=== PATIENT | female | born 1990 | race Caucasian/White ===

== ENCOUNTER 2016-12-02 19:50 | Emergency (ER) | payer SELFPAY ==
[~2016-12-02] VITALS: Wt 85.0 kg
[~2016-12-02 19:50] MED LIST: NITR-58 PO
== END 2016-12-02 23:03 | disposition left against medical advice (07) ==
LOC: FTE 19:50
DX: Z53.21 Procedure and treatment not carried out due to patient leaving prior to being seen by health care provider (principal)

== ENCOUNTER 2017-09-10 11:10 | Emergency (ER) | payer OTHER ==
[~2017-09-10] VITALS: Ht 167.6 cm; Wt 117.0 kg
[2017-09-10 11:27] VITALS: Ht 167.6 cm; Wt 117.0 kg
[2017-09-10] MEDS ORDERED: HYDROmorphONE 1 MG/ML SYG IV STA (12:27)
[2017-09-10] MEDS ORDERED: ONDANSETRON 4 MG INJ IV STA (12:27)
[2017-09-10] MEDS ORDERED: SOD CHLORIDE 0.9% 1,000 ML IV STA (12:27)
[2017-09-10 13:24] LABS: BASOPHILS % 0.3 % (0.0-2.0); EOSINOPHILS % 0.6 % (0.0-7.0); HEMATOCRIT 38.1 % (37.0-47.0); HEMOGLOBIN 12.6 g/dl (12.0-16.0); LYMPHOCYTES # 1.3 10^3/ul (0.8-2.9); LYMPHOCYTES % 20.6 % (15.0-51.0); MEAN CORPUSCULAR HEMOGLOBIN 28.4 pg (29.0-33.0); MEAN CORPUSCULAR HGB CONC 33.1 g/dl (32.0-37.0); MEAN CORPUSCULAR VOLUME 85.8 fl (82.0-101.0); MEAN PLATELET VOLUME 10.9 fl (7.4-10.4); MONOCYTE # 0.5 10^3/ul (0.3-0.9); MONOCYTES % 7.5 % (0.0-11.0); NEUTROPHIL # 4.5 10^3/ul (1.6-7.5); NEUTROPHILS % 70.7 % (39.0-77.0); PLATELET COUNT 278 10^3/UL (140-415); RED BLOOD COUNT 4.44 10^6/ul (4.20-5.40); RED CELL DISTRIBUTION WIDTH 12.9 % (11.5-14.5); WHITE BLOOD COUNT 6.3 10^3/ul (4.8-10.8)
[2017-09-10 14:08] LABS: ALBUMIN 4.1 g/dl (3.3-4.9); ALBUMIN/GLOBULIN RATIO 1.17; BILIRUBIN,INDIRECT 0.2 mg/dl (0-1.1); BILIRUBIN,TOTAL 0.2 mg/dl (0.2-1.3); CALCIUM 8.5 mg/dl (8.4-10.2); CREATININE 0.71 mg/dl (0.44-1.00); POTASSIUM 3.6 mmol/L (3.5-5.1); TOTAL PROTEIN 7.6 g/dl (6.1-8.1)
[2017-09-10] MEDS ORDERED: IOHEXOL 300MG/ML 150 ML BTL ONE (14:26)
[2017-09-10] MEDS ORDERED: SOD CHLORIDE 0.9% 100 ML ONE (14:26)
--- NOTE | 2017-09-10 14:44 | ERD ---
ER Documentation Chief Complaint Chief Complaint AP X3 DAYS W/VOMITTING HPI This is a 26-year-old female complains of 3 days of abdominal pain located in the left upper and lower quadrant with nausea vomiting diarrhea. There has been no blood in her vomit or diarrhea there is nonbilious vomiting. The pain is crampy and intermittent. No pain in the back. No fever. No history of diverticulitis no known bad food exposure. Pain is not made worse after eating. ROS All systems reviewed and are negative except as per history of present illness. Medications Home Meds Active Scripts Diphenoxylate HCl/Atropine (Lomotil 2.5-0.025 mg Tablet) 1 Each Tablet, 1 TAB PO QID Y for DIARRHEA, #10 TAB Prov:ERASMO PARTIDA DO 09/10/17 Ondansetron (Ondansetron Odt) 4 Mg Tab.rapdis, 4 MG PO Q6H Y for NAUSEA AND/OR VOMITING, #10 TAB Prov:ERASMO PARTIDA DO 09/10/17 Hydrocodone/Acetaminophen (Calpine 10-325 Tablet) 1 Each Tablet, 1 TAB PO Q6H Y for PAIN, #20 TAB Prov:ERASMO PARTIDA. DO 09/10/17 Ciprofloxacin Hcl* (Ciprofloxacin Hcl*) 500 Mg Tablet, 500 MG PO BID for 7 Days , TAB Prov:ERASMO PARTIDA. DO 09/10/17 Nitrofurantoin Monohyd Macrocr* (Macrobid*) 100 Mg Capsr, 100 MG PO BID for 7 Days, CAP Prov:UMER FORD NP 03/15/16 Allergies Allergies: Coded Allergies: No Known Allergies (Verified Allergy, Mild, 03/19/14) PMhx/Soc Anesthesia Reaction: No Hx Neurological Disorder: No Hx Respiratory Disorders: No Hx Cardiac Disorders: No Hx Psychiatric Problems: No Hx Miscellaneous Medical Probl: No Hx Alcohol Use: No Hx Substance Use: No Hx Tobacco Use: No Smoking Status: Never smoker FmHx Family History: No coronary disease Physical Exam Vitals Vital Signs Date Time Temp Pulse Resp B/P Pulse Ox O2 Delivery O2 Flow Rate FiO2 09/10/17 11:27 100.4 90 18 138/64 98 Physical Exam Const: Well-developed, well-nourished Head: Atraumatic, normocephalic Eyes: Normal Conjunctiva, PERRLA, EOMI, normal sclera, no nystagmus ENT: Normal External Ears, Nose and Mouth, moist mucus membranes. Neck: Full range of motion. No meningismus, no lymphadenopathy. Resp: Clear to auscultation bilaterally, no wheezing, rhonchi, rales Cardio: Regular rate and rhythm, no murmurs, S1 S2 present Abd: Soft, tenderness to the left upper and lower quadrant mild to moderate, non distended. Normal bowel sounds, no guarding or rebound, no pulsitile abdominal masses or bruits Skin: No petechiae or rashes, no ecchymosis , no maculopapular rash Back: No midline or flank tenderness Ext: No cyanosis, or edema, FROM x 4, normal inspection, neurovascularly intact x 4 Neur: Awake and alert, STR 5/5 x 4, sensation intact x 4, no focal findings, cerebellum intact Psych: Normal Mood and Affect Result Diagram: 09/10/17 1255 09/10/17 1255 Results 24 hrs Laboratory Tests Test 09/10/17 12:55 White Blood Count 6.310^3/ul Red Blood Count 4.4410^6/ul Hemoglobin 12.6g/dl Hematocrit 38.1% Mean Corpuscular Volume 85.8fl Mean Corpuscular Hemoglobin 28.4pg Mean Corpuscular Hemoglobin Concent 33.1g/dl Red Cell Distribution Width 12.9% Platelet Count 07104^3/UL Mean Platelet Volume 10.9fl Neutrophils % 70.7% Lymphocytes % 20.6% Monocytes % 7.5% Eosinophils % 0.6% Basophils % 0.3% Nucleated Red Blood Cells % 0.0/100WBC Neutrophils # 4.510^3/ul Lymphocytes # 1.310^3/ul Monocytes # 0.510^3/ul Eosinophils # 0.010^3/ul Basophils # 0.010^3/ul Nucleated Red Blood Cells # 0.010^3/ul Sodium Level 140mmol/L Potassium Level 3.6mmol/L Chloride Level 105mmol/L Carbon Dioxide Level 23mmol/L Anion Gap 16 Blood Urea Nitrogen 9mg/dl Creatinine 0.71mg/dl Glucose Level 91mg/dl Calcium Level 8.5mg/dl Total Bilirubin 0.2mg/dl Direct Bilirubin 0.00mg/dl Indirect Bilirubin 0.2mg/dl Aspartate Amino Transf (AST/SGOT) 21IU/L Alanine Aminotransferase (ALT/SGPT) 41IU/L Alkaline Phosphatase 72IU/L Total Protein 7.6g/dl Albumin 4.1g/dl Globulin 3.50g/dl Albumin/Globulin Ratio 1.17 Serum HCG, Qualitative NEGATIVE Current Medications Medications (Trade) Dose Ordered Sig/Jerardo Route PRN Reason Start Time Stop Time Status Last Admin Dose Admin Sodium Chloride (NS) 1,000 ml @ 1,000 mls/hr Q1H STAT IV 09/10/17 12:27 09/10/17 13:26 DC 09/10/17 13:15 Hydromorphone HCl (Dilaudid) 1 mg ONCE STAT IV 09/10/17 12:27 09/10/17 12:29 DC 09/10/17 13:40 Ondansetron HCl (Zofran Inj) 4 mg ONCE STAT IV 09/10/17 12:27 09/10/17 12:29 DC 09/10/17 13:39 IV Flush 10 ml 10 ml STK-MED ONCE .ROUTE 09/10/17 14:26 09/10/17 14:27 DC 09/10/17 14:45 Sodium Chloride (NS) 100 ml @ ud STK-MED ONCE .ROUTE 09/10/17 14:26 09/10/17 14:27 DC 09/10/17 14:45 Iohexol (Omnipaque 300mg/ ml) 150 ml STK-MED ONCE .ROUTE 09/10/17 14:26 09/10/17 14:27 DC 09/10/17 14:45 Procedures/MDM PROCEDURE: CT Abdomen and Pelvis with Contrast CLINICAL INDICATION: Left lower quadrant pain TECHNIQUE: Transaxial images were obtained through the abdomen and pelvis on a multi-slice scanner following the intravenous administration of iodinated contrast. No oral contrast had previously been given. Sagittal and coronal re- formations were subsequently reconstructed. One or more of the following dose reduction techniques were used: - Automated exposure control. - Adjustment of the mA and/or kV according to patient size. - Use of iterative reconstruction technique. Radiation dose: CTDIvol = 23.71 mGy; DLP = 1563.59 mGy-cm. COMPARISON: 12/15/2007 FINDINGS: Lung bases: The visualized lung bases appear unremarkable. Liver: The liver is enlarged but no focal lesion is identified. Gallbladder: The wall is not thickened. No radiopaque stones are identified. Bile ducts: The intra and extrahepatic bile ducts are normal in caliber. Pancreas: Appears normal with no mass or inflammation evident. Spleen: The spleen is mildly enlarged. Adrenals: Normal with no mass identified. Kidneys, ureters and bladder: The kidneys enhance normally and are normal in size and there is no mass, pathological calcification, or hydronephrosis evident. There is no perinephric stranding. The ureters are normal in caliber and no ureteroliths are identified. The bladder appears unremarkable. Reproductive organs: The uterus is midline. No adnexal mass is identified. Stomach, bowel, and mesentery: The stomach is mildly distended with food debris. There is fluid through much of the colon which can be seen with diarrhea. There is no evidence of bowel obstruction or inflammation. Appendix: Portions of a normal-appearing vermiform appendix are evident. Peritoneum: No free intraperitoneal fluid or air is identified. Aorta: Normal in caliber with no aneurysmal dilatation. IVC: Unremarkable. Lymph nodes: No pathologically enlarged nodes are identified. Osseous structures: The osseous elements appear intact. IMPRESSION: 1. When compared to the previous CT of 12/15/2007, fluid is now seen through much of the colon. This can be seen in a diarrhea syndrome. There is again no evidence of bowel obstruction or inflammation. Portions of a normal vermiform appendix are evident. 2. No evidence of urinary outflow obstruction or ureterolithiasis within normal appearing bladder. 3. Development of mild hepatomegaly with no focal lesion. 4. Development of mild splenomegaly. 5. There is no free intraperitoneal fluid or air. 6. Otherwise, stable and unremarkable CT scan of the abdomen and pelvis. Physician Tess Date Time Electronically viewed and signed by Physician Tess on 09/10/2017 14:58 RH/ CC: ERASMO PARTIDA DO No evidence of diverticulitis or other pathology. The patient likely has gastroenteritis, bad food exposure or virus. She feels much better will treat symptomatically Departure Diagnosis: Primary Impression: Vomiting and diarrhea Additional Impression: Abdominal cramps Condition: Stable ERASMO PARTIDA DO Sep 10, 2017 14:44
[2017-09-10] MEDS ORDERED: DIPH1TAB PO (14:55)
[2017-09-10] MEDS ORDERED: ONDA4TAB14 PO (14:55)
[2017-09-10] MEDS ORDERED: HYDR-902 PO (14:55)
[2017-09-10] MEDS ORDERED: CIPR500T4 PO (14:55)
--- NOTE | 2017-09-10 14:59 | RADRPT ---
PROCEDURE: CT Abdomen and Pelvis with Contrast CLINICAL INDICATION: Left lower quadrant pain TECHNIQUE: Transaxial images were obtained through the abdomen and pelvis on a multi-slice scanner following the intravenous administration of iodinated contrast. No oral contrast had previously be en given. Sagittal and coronal re-formations were subsequently reconstructed. One or more of the following dose reduction techniques were used: - Automated exposure control. - Adjustment of the mA and/or kV according to patient size. - Use of iterative reconstruction technique. Radiation dose: CTDIvol = 23.71 mGy; DLP = 1563.59 mGy-cm. COMPARISON: 12/15/2007 FINDINGS: Lung bases: The visualized lung bases appear unremarkable. Liver: The liver is enlarged but no focal lesion is identified. Gallbladder: The wall is not thickened. No radiopaque stones are identified. Bile ducts: The intra and extrahepatic bile ducts are normal in caliber. Pancreas: Appears normal with no mass or inflammation evident. Spleen: The spleen is mildly enlarged. Adrenals: Normal with no mass identified. Kidneys, ureters and bladder: The kidneys enhance normally and are normal in size and there is no ma ss, pathological calcification, or hydronephrosis evident. There is no perinephric stranding. The ur eters are normal in caliber and no ureteroliths are identified. The bladder appears unremarkable. Reproductive organs: The uterus is midline. No adnexal mass is identified. Stomach, bowel, and mesentery: The stomach is mildly distended with food debris. There is fluid thro ugh much of the colon which can be seen with diarrhea. There is no evidence of bowel obstruction or inflammation. Appendix: Portions of a normal-appearing vermiform appendix are evident. Peritoneum: No free intraperitoneal fluid or air is identified. Aorta: Normal in caliber with no aneurysmal dilatation. IVC: Unremarkable. Lymph nodes: No pathologically enlarged nodes are identified. Osseous structures: The osseous elements appear intact. IMPRESSION: 1. When compared to the previous CT of 12/15/2007, fluid is now seen through much of the colon. Thi s can be seen in a diarrhea syndrome. There is again no evidence of bowel obstruction or inflammatio n. Portions of a normal vermiform appendix are evident. 2. No evidence of urinary outflow obstruction or ureterolithiasis within normal appearing bladder. 3. Development of mild hepatomegaly with no focal lesion. 4. Development of mild splenomegaly. 5. There is no free intraperitoneal fluid or air. 6. Otherwise, stable and unremarkable CT scan of the abdomen and pelvis. Physician Tess Date Time Electronically viewed and signed by Majo Vasquez Physician on 09/10/2017 14:58 RH/
[2017-09-10 15:25] VITALS: BP 127/59; PULSE 84; RESP 18; TEMP 98.7
== END 2017-09-10 15:26 | disposition home or self-care (01) ==
LOC: FTE 11:10
DX: R10.12 Left upper quadrant pain (principal); R10.32 Left lower quadrant pain; R11.10 Vomiting, unspecified; R19.7 Diarrhea, unspecified
CPT/HCPCS: 36415; 74177; 80053; 84703; 85025; 96374; 96375; J1170; J2405; J7030; Q9967; Z7502; Z7610

== ENCOUNTER 2018-01-07 15:17 | Emergency (ER) | END 2018-01-07 21:37 | disposition home or self-care (01) ==

== ENCOUNTER 2018-06-06 12:21 | Emergency (ER) | END 2018-06-06 15:43 | disposition home or self-care (01) ==

== ENCOUNTER 2018-12-16 18:48 | Emergency (ER) | payer OTHER ==
[~2018-12-16] VITALS: Ht 162.6 cm; Wt 117.4 kg
[~2018-12-16 18:48] MED LIST changes: +AZIT250T PO; +CIPR500T4 PO; +DIPH1TAB PO; +HYDR-3980 PO; +HYDR-4011 PO; +IBUP-1561 PO; +ONDA4TAB14 PO
[2018-12-16 18:59] VITALS: Ht 162.6 cm; Wt 117.4 kg
[2018-12-16] MEDS ORDERED: SOD CHLORIDE 0.9% 1,000 ML IV STA (21:40)
[2018-12-16] MEDS ORDERED: DICYCLOMINE 10 MG CAP PO ONE (22:00)
[2018-12-16] MEDS ORDERED: DICY10CA40 PO (22:56)
--- NOTE | 2018-12-16 23:06 | ERD ---
ER Documentation Chief Complaint Chief Complaint AP and diarrhea x 3 weeks HPI Patient is a 28-year-old female with no past medical history presents the ER for concerns of diffuse abdominal pain and diarrhea for the last 3 months. Patient states her episodes of diarrhea are increasing over the last 3 weeks. Patient states that she is noted that she is now having some blood in her stools. Patient approximates 2-3 episodes of loose stools daily. Patient states that her stools alternate between being loose and formed. Patient denies any dizziness or lightheadedness. Patient denies any fevers or chills. Patient states she occasionally has abdominal cramping. No recent travel. No recent antibiotic use. Patient denies any chest pain, shortness of breath, nausea, vomiting, dysuria, frequency, hematuria, diaphoresis or loss of consciousness. ROS All systems reviewed and are negative except as per history of present illness. Medications Home Meds Active Scripts Dicyclomine HCl (Dicyclomine HCl) 10 Mg Capsule, 10 MG PO TID PRN for ABDOMINAL CRAMPING, #20 CAP Prov:LUNA MOSELEY PA-C 12/16/18 Nitrofurantoin Monohyd Macrocr* (Macrobid*) 100 Mg Capsr, 100 MG PO BID for 5 Days, #10 CAP Prov:JOSE EDUARDO WAKEFIELD DO 06/06/18 Azithromycin* (Zithromax*) 250 Mg Tablet, 250 MG PO .RUTH DIRECTED, #6 TAB TAKE 500 MG (2 TABS) THE FIRST DAY THEN 250 MG (1 TAB) DAYS 2-5 Prov:TIMO HUTCHINSON MD 01/07/18 Ibuprofen* (Motrin*) 400 Mg Tab, 400 MG PO Q8, #15 TAB Prov:TIMO HUTCHINSON MD 01/07/18 Hydrocodone/Acetaminophen ([place] 5-325 Tablet) 1 Each Tablet, 1 TAB PO Q6H PRN for PAIN, #12 TAB Prov:TIMO HUTCHINSON MD 01/07/18 Diphenoxylate HCl/Atropine (Lomotil 2.5-0.025 mg Tablet) 1 Each Tablet, 1 TAB PO QID PRN for DIARRHEA, #10 TAB Prov:ERASMO PARTIDA DO 09/10/17 Ondansetron (Ondansetron Odt) 4 Mg Tab.rapdis, 4 MG PO Q6H PRN for NAUSEA AND/OR VOMITING, #10 TAB Prov:ERASMO PARTIDA DO 09/10/17 Hydrocodone/Acetaminophen ([place] 10-325 Tablet) 1 Each Tablet, 1 TAB PO Q6H PRN for PAIN, #20 TAB Prov:ERASMO PARTIDA. DO 09/10/17 Ciprofloxacin Hcl* (Ciprofloxacin Hcl*) 500 Mg Tablet, 500 MG PO BID for 7 Days, TAB Prov:ERASMO PARTIDA. DO 09/10/17 Nitrofurantoin Monohyd Macrocr* (Macrobid*) 100 Mg Capsr, 100 MG PO BID for 7 Days, CAP Prov:UMER FORD NP 03/15/16 Allergies Allergies: Coded Allergies: No Known Allergies (Verified Allergy, Mild, 01/07/18) PMhx/Soc Medical and Surgical Hx: pt denies Medical Hx Anesthesia Reaction: No Hx Neurological Disorder: No Hx Respiratory Disorders: No Hx Cardiac Disorders: No Hx Psychiatric Problems: No Hx Miscellaneous Medical Probl: No Hx Alcohol Use: Yes (OCCASIONAL) Hx Substance Use: Yes (MARIJUANA) Hx Tobacco Use: No Smoking Status: Never smoker FmHx Family History: No diabetes Physical Exam Vitals Vital Signs Date Temp Pulse Resp B/P (MAP) Pulse Ox O2 O2 Flow FiO2 Time Delivery Rate 12/16/18 98.7 83 20 135/82 97 18:59 (99) Physical Exam GENERAL: Well-developed, well-nourished female. Appears in no acute distress. Speaking in full sentences. HEAD: Normocephalic, atraumatic. EYES: Pupils are equally reactive bilaterally. EOMs grossly intact. No conjunctival erythema. ENT: Moist mucous membranes. No uvula deviation. No kissing tonsils. NECK: Supple. No meningismus. Normal range of motion of the neck. LUNG: Clear to auscultation bilaterally. No rhonchi, wheezing, rales or coarse breath sounds. HEART: Regular rate and rhythm. No murmurs, rubs or gallops. ABDOMEN: Obese abdomen. Soft, nontender, and nondistended. Positive bowel sounds in all four quadrants. No rebound tenderness, no guarding. (-) McBurney's point tenderness. No CVA tenderness. EXTREMITIES: Equal pulses bilaterally. No peripheral clubbing, cyanosis or edema. No unilateral leg swelling. NEUROLOGIC: Alert and oriented. Moving all four extremities without any difficulty. Normal speech. Steady gait. SKIN: Normal color. Warm and dry. No rashes or lesions. Result Diagram: 12/16/18220012/16/182200 Results 24 hrs Laboratory Tests Test 12/16/18 21:54 12/16/18 22:01 POC Beta HCG, Qualitative NEGATIVE White Blood Count 9.9 10^3/ul Red Blood Count 4.42 10^6/ul Hemoglobin 12.6 g/dl Hematocrit 38.0 % Mean Corpuscular Volume 86.0 fl Mean Corpuscular Hemoglobin 28.5 pg Mean Corpuscular Hemoglobin Concent 33.2 g/dl Red Cell Distribution Width 13.2 % Platelet Count 312 10^3/UL Mean Platelet Volume 10.8 fl Immature Granulocytes % 0.300 % Neutrophils % 63.1 % Lymphocytes % 27.7 % Monocytes % 6.7 % Eosinophils % 1.9 % Basophils % 0.3 % Nucleated Red Blood Cells % 0.0 /100WBC Immature Granulocytes # 0.030 10^3/ul Neutrophils # 6.2 10^3/ul Lymphocytes # 2.7 10^3/ul Monocytes # 0.7 10^3/ul Eosinophils # 0.2 10^3/ul Basophils # 0.0 10^3/ul Nucleated Red Blood Cells # 0.0 10^3/ul Urine Color YELLOW Urine Clarity SLIGHTLY CLOUDY Urine pH 6.0 Urine Specific [place] 1.032 Urine Ketones TRACE mg/dL Urine Nitrite NEGATIVE mg/dL Urine Bilirubin NEGATIVE mg/dL Urine Urobilinogen NEGATIVE mg/dL Urine Leukocyte Esterase TRACE Deneen/ul Urine Microscopic RBC 11 /HPF Urine Microscopic WBC 6 /HPF Urine Squamous Epithelial Cells FEW /HPF Urine Bacteria FEW /HPF Urine Mucus MODERATE /HPF Urine Hemoglobin 1+ mg/dL Urine Glucose NEGATIVE mg/dL Urine Total Protein NEGATIVE mg/dl Sodium Level 139 mmol/L Potassium Level 4.5 mmol/L Chloride Level 101 mmol/L Carbon Dioxide Level 25 mmol/L Anion Gap 13 Blood Urea Nitrogen 13 mg/dl Creatinine 0.56 mg/dl Est Glomerular Filtrat Rate mL/min > 60 mL/min Glucose Level 95 mg/dl Calcium Level 9.5 mg/dl Total Bilirubin 0.0 mg/dl Direct Bilirubin 0.00 mg/dl Indirect Bilirubin 0.0 mg/dl Aspartate Amino Transf (AST/SGOT) 31 IU/L Alanine Aminotransferase (ALT/SGPT) 33 IU/L Alkaline Phosphatase 95 IU/L Total Protein 8.5 g/dl Albumin 4.6 g/dl Globulin 3.90 g/dl Albumin/Globulin Ratio 1.17 Lipase 37 U/L Current Medications Medications Dose Sig/Jerardo Start Time Status Last (Trade) Ordered Route PRN Stop Time Admin Dose Reason Admin Sodium 1,000 ml @ Q1H STAT 12/16/18 DC 12/16/18 Chloride 1,000 mls/hr IV 21:40 21:55 12/16/18 22:39 Dicyclomine 10 mg ONCE ONCE 12/16/18 DC 12/16/18 HCl PO 22:00 21:56 (Bentyl) 12/16/18 22:01 Procedures/MDM ED COURSE: The patient was stable throughout ED course. I kept the patient and/or family informed of laboratory and diagnostic imaging results throughout the ED course. DIAGNOSTIC IMAGING: Read by radiologist. DIAGNOSTIC IMAGING REPORT Patient: ISABELLA SCHAEFER : 1990 Age: 28 Sex: F MR #: [id number] DOS: 12/16/18 2140 Ordering MD: LUNA MOSELEY PA-C Location: [facility] Room/Bed: PROCEDURE: CT ABDOMEN AND PELVIS WITHOUT CONTRAST. CLINICAL INDICATION: Abdominal pain with bloody stools TECHNIQUE: CT scan of the abdomen and pelvis without contrast was performed on a multidetector high-resolution CT scanner. The patient was scanned without intravenous contrast. Coronal and sagittal reformatted images were obtained from the axial source images. Images were reviewed on a high-resolution PACS workstation. The total exam CTDI equals 23.8 mGy and the total exam DLP equals 1523.7 mGy-cm. One or more of the following dose reduction techniques were used: Automated exposure control. Adjustment of the mA and/or kV according to patient size. Use of iterative reconstruction technique. DICOM images are available COMPARISON: CT abdomen/pelvis dated September 10, 2017 FINDINGS: CT abdomen: The lung bases are clear. The heart size is within normal limits. There is no significant pericardial effusion. Hepatic morphology is within normal limits. No gross contour deforming masses. The gallbladder is within normal limits. No evidence of intrahepatic or extrahepatic biliary dilatation. The spleen and pancreas are within normal limits. Both adrenal glands are within normal limits. Both kidneys are in normal anatomic position. No evidence of obstruction or hydronephrosis. No gross renal/ureteric calculi. The visualized GI tract demonstrate normal caliber loops of small and large bowel. No evidence of bowel obstruction. The appendix is within normal limits. The unenhanced aorta is unremarkable. Several shoddy retroperitoneal lymph nodes are noted. CT pelvis: The bladder is within limits. Uterus is unremarkable. The rectosigmoid colon demonstrates stool. No gross perirectal inflammatory changes . No significant free fluid. No significant pelvic lymphadenopathy. The visualized osseous structures, appears to be within normal limits. IMPRESSION: 1. No evidence of acute intra-abdominal/pelvic inflammatory process. No evidence of bowel obstruction. The appendix is within normal limits. 2. The rectosigmoid colon appears to be within normal limits without evidence of perirectal fatty stranding. 3. No evidence of free fluid or free air. No gross focal fluid collections. 4. Otherwise unremarkable unenhanced CT scan of the abdomen/pelvis. RPTAT: AAPP Physician Padmaja Date Time Electronically viewed and signed by Physician Padmaja on 12/16/2018 22:43 JL/ CC: LUNA MOSELEY PA-C [id number] PROCEDURES: None. MEDICATIONS GIVEN: IV fluids, Bentyl Patient tolerated medication well with no adverse reactions. Patient reported improvement in pain. MEDICAL DECISION MAKING: This is a 28-year-old female presents the ER for concerns of intermittent abdominal pain and diarrhea for the last 3 months. Patient states her frequency and diarrhea is starting to occur more.. Vital signs were reviewed. Patient is afebrile. Abdominal exam is benign. Patient had no peritoneal signs. Patient had no rebound or guarding. IV line was established. Blood work was obtained. CBC showed no evidence of systemic infection or severe anemia. CMP showed no evidence of electrolyte abnormalities, severe acidosis, alkalosis, renal failure, or liver disease. Lipase showed no evidence of acute pancreatitis. UA showed trace leukocyte esterase and diffuse, squamous epithelial cells. Urine likely contaminated specimen. Patient denies any dysuria, frequency, hematuria. I will hold off on treating patient at this time. Urine test was negative. CT abdomen pelvis was obtained. 1. No evidence of acute intra-abdominal/pelvic inflammatory process. No evidence of bowel obstruction. The appendix is within normal limits. 2. The rectosigmoid colon appears to be within normal limits without evidence of perirectal fatty stranding. 3. No evidence of free fluid or free air. No gross focal fluid collections. 4. Otherwise unremarkable unenhanced CT scan of the abdomen/pelvis. At this time, the patient presentation is most consistent with diarrhea of unknown etiology. Unable to rule out IBD versus malignancy versus bacterial sources. Patient was advised to follow-up with her primary care physician for stool studies on outpatient basis. Differential diagnosis included but was not limited to acute coronary syndrome, AAA, mesenteric ischemia, lower lobe pneumonia, DKA, bowel perforation, obstruction, cholecystitis, choledochol ithiasis, ascending cholangitis, hepatic abscess, pancreatitis, PUD, gastritis, GERD, splenic rupture, diverticulitis, UTI, pyelonephritis, nephrolithiasis, appendicitis, constipation, , ectopic , PID, ovarian torsion or tubo-ovarian abscess. Patient was nontoxic, [id number] prior to discharge. PRESCRIPTIONS: Bentyl DISCHARGE: At this time, patient is stable for discharge and outpatient management. I have instructed the patient to follow-up with his/her primary care physician in 1-2 days. I have instructed the patient to promptly return to the ER at any time for any new or worsening symptoms including increased pain, nausea, vomiting, diarrhea, fever, weakness or LOC. The patient and/or family expressed understanding of and agreement with this plan. All questions were answered. Home care instructions were provided. Disclaimer: Inadvertent spelling and grammatical errors are likely due to EHR/dictation software use and do not reflect on the overall quality of patient care. Also, please note that the electronic time recorded on this note does not necessarily reflect the actual time of the patient encounter. Departure Diagnosis: Primary Impression: Diarrhea Diarrhea type: unspecified type Qualified Codes: R19.7 - Diarrhea, unspecified Additional Impression: Abdominal pain Abdominal location: unspecified location Qualified Codes: R10.9 - Unspecified abdominal pain Condition: Fair Patient Instructions: Treating Diarrhea Referrals: BARNEY RICHARD NAGARAJ M MD DANESHGAR, SHAHRAM MD JOGANI,CARLOS GUADALUPE,CATIA ARCHER,CATRACHITO ALMONTE MD,ANN SOLOMON [facility] YOU HAVE RECEIVED A MEDICAL SCREENING EXAM AND THE RESULTS INDICATE THAT YOU DO NOT HAVE A CONDITION THAT REQUIRES URGENT TREATMENT IN THE EMERGENCY DEPARTMENT. FURTHER EVALUATION AND TREATMENT OF YOUR CONDITION CAN WAIT UNTIL YOU ARE SEEN IN YOUR DOCTORS OFFICE WITHIN THE NEXT 1-2 DAYS. IT IS YOUR RESPONSIBILITY TO MAKE AN APPOINTMENT FOR FOLOW-UP CARE. IF YOU HAVE A PRIMARY DOCTOR --you should call your primary doctor and schedule an appointment IF YOU DO NOT HAVE A PRIMARY DOCTOR YOU CAN CALL OUR PHYSICIAN REFERRAL HOTLINE AT IF YOU CAN NOT AFFORD TO SEE A PHYSICIAN YOU CAN CHOSE FROM THE FOLLOWING [facility] [address] [facility]. [facility] [address] [facility] [address] [facility] [address] [facility] [address] [facility]. [facility] [address] [facility] [facility] YOU HAVE RECEIVED A MEDICAL SCREENING EXAM AND THE RESULTS INDICATE THAT YOU DO NOT HAVE A CONDITION THAT REQUIRES URGENT TREATMENT IN THE EMERGENCY DEPARTMENT. FURTHER EVALUATION AND TREATMENT OF YOUR CONDITION CAN WAIT UNTIL YOU ARE SEEN IN YOUR DOCTORS OFFICE WITHIN THE NEXT 1-2 DAYS. IT IS YOUR RESPONSIBILITY TO MAKE AN APPOINTMENT FOR FOLOW-UP CARE. IF YOU HAVE A PRIMARY DOCTOR --you should call your primary doctor and schedule and appointment IF YOU DO NOT HAVE A PRIMARY DOCTOR YOU CAN CALL OUR PHYSICIAN REFERRAL HOTLINE AT . IF YOU CAN NOT AFFORD TO SEE A PHYSICIAN YOU CAN CHOSE FROM THE FOLLOWING [facility] INSTITUTIONS: [facility] [address] [place] [address] [facility] [address] [place] [address] [facility] + [facility] [address] [place] [address] Additional Instructions: Follow-up with your primary care physician for stool studies on outpatient basis. Drink plenty of fluids. Stay hydrated. Follow-up with a GI specialist for further management of your symptoms. Call your primary care doctor TOMORROW for an appointment during the next 1-2 days.See the doctor sooner or return here if your condition worsens before your appointment time. LUNA MOSELEY PA-C Dec 16, 2018 23:06
[2018-12-16 23:37] VITALS: BP 125/61; PULSE 80; RESP 18
== END 2018-12-16 23:46 | disposition home or self-care (01) ==
LOC: FTE 18:48
DX: R19.7 Diarrhea, unspecified (principal); R10.9 Unspecified abdominal pain
CPT/HCPCS: 36415; 74176; 80053; 81001; 81025; 83690; 85025; J7030; Z7502; Z7610

== ENCOUNTER 2019-01-28 11:01 | Emergency (ER) | payer OTHER ==
[~2019-01-28] VITALS: Ht 167.6 cm; Wt 120.0 kg
[~2019-01-28 11:01] MED LIST changes: +DICY10CA40 PO
[2019-01-28 11:08] VITALS: Ht 167.6 cm; Wt 120.0 kg
[2019-01-28] MEDS ORDERED: ACETAMINOPHEN 325 MG TAB PO STA (11:49)
[2019-01-28] MEDS ORDERED: ACET500C5 PO (14:03)
[2019-01-28] MEDS ORDERED: CEPH-443 PO (14:03)
--- NOTE | 2019-01-28 14:36 | ERD ---
ER Documentation Chief Complaint Chief Complaint LOWER ABD PAIN X 3 DAYS , DENIES N//V/D HPI 28-year-old female patient is a with no significant past medical history presents to ED complaining of lower abdominal pain that started 3 days ago. Patient denies any nausea, vomiting, diarrhea. Reports that her last menstruation was on December 21, 2018. Denies any chest pain, shortness of breath, dysuria, urgency, frequency, hematuria, fever, chills. Patient denies any vaginal bleeding, vaginal discharge. ROS All systems reviewed and are negative except as per history of present illness. Medications Home Meds Active Scripts Cephalexin* (Keflex*) 500 Mg Capsule, 500 MG PO QID for 7 Days, CAP Prov:ZAK LOUIS PA-C 01/28/19 Acetaminophen* (Tylophen*) 500 Mg Capsule, 1 CAP PO Q6H PRN for PAIN AND OR ELEVATED TEMP, #20 CAP Prov:ZAK LOUIS PA-C 01/28/19 Dicyclomine HCl (Dicyclomine HCl) 10 Mg Capsule, 10 MG PO TID PRN for ABDOMINAL CRAMPING, #20 CAP Prov:LUNA MOSELEY PA-C 12/16/18 Nitrofurantoin Monohyd Macrocr* (Macrobid*) 100 Mg Capsr, 100 MG PO BID for 5 Days, #10 CAP Prov:JOSE EDUARDO WAKEFIELD DO 06/06/18 Azithromycin* (Zithromax*) 250 Mg Tablet, 250 MG PO .CandisPACK DIRECTED, #6 TAB TAKE 500 MG (2 TABS) THE FIRST DAY THEN 250 MG (1 TAB) DAYS 2-5 Prov:TIMO HUTCHINSON MD 01/07/18 Ibuprofen* (Motrin*) 400 Mg Tab, 400 MG PO Q8, #15 TAB Prov:TIMO HUTCHINSON MD 01/07/18 Hydrocodone/Acetaminophen ([place] 5-325 Tablet) 1 Each Tablet, 1 TAB PO Q6H PRN for PAIN, #12 TAB Prov:TIMO HUTCHINSON MD 01/07/18 Diphenoxylate HCl/Atropine (Lomotil 2.5-0.025 mg Tablet) 1 Each Tablet, 1 TAB PO QID PRN for DIARRHEA, #10 TAB Prov:ERASMO PARTIDA DO 09/10/17 Ondansetron (Ondansetron Odt) 4 Mg Tab.rapdis, 4 MG PO Q6H PRN for NAUSEA AND/OR VOMITING, #10 TAB Prov:ERASMO PARTIDA. DO 09/10/17 Hydrocodone/Acetaminophen (Prom[place] 10-325 Tablet) 1 Each Tablet, 1 TAB PO Q6H PRN for PAIN, #20 TAB Prov:ERASMO PARTIDA. DO 09/10/17 Ciprofloxacin Hcl* (Ciprofloxacin Hcl*) 500 Mg Tablet, 500 MG PO BID for 7 Days, TAB Prov:ERASMO PARTIDA. DO 09/10/17 Nitrofurantoin Monohyd Macrocr* (Macrobid*) 100 Mg Capsr, 100 MG PO BID for 7 Days, CAP Prov:UMER FORD METAL SPRAY OPERATOR 03/15/16 Allergies Allergies: Coded Allergies: No Known Allergies (Verified Allergy, Mild, 01/07/18) PMhx/Soc Anesthesia Reaction: No Hx Neurological Disorder: No Hx Respiratory Disorders: No Hx Cardiac Disorders: No Hx Psychiatric Problems: No Hx Miscellaneous Medical Probl: No Hx Alcohol Use: Yes (OCCASIONAL) Hx Substance Use: Yes (MARIJUANA) Hx Tobacco Use: No Smoking Status: Never smoker FmHx Family History: No diabetes, No coronary disease Physical Exam Vitals Vital Signs Date Temp Pulse Resp B/P (MAP) Pulse Ox O2 O2 Flow FiO2 Time Delivery Rate 01/28/19 37.3 12:27 01/28/19 99.1 82 18 148/68 98 11:08 (94) Physical Exam Const: [id number], well-nourished. In no acute distress. Head: Atraumatic, normocephalic Eyes: Normal Conjunctiva without injection. No purulent discharge. ENT: Normal external ear, nose. Moist oropharynx without tonsillar exudates. Non-erythematous pharynx. Uvula midline. No drooling. No trismus. Neck: No cervical midline tenderness. Full range of motion. No meningismus. No cervical lymphadenopathy. No JVD. Resp: Clear to auscultation bilaterally. No wheezing, rhonchi, rales, or crackles. No accessory muscle use. No retractions. Cardio: Regular rate and rhythm. No murmurs, rubs or gallops. Abd: Soft, nontender, non distended. Normal bowel sounds. No palpable masses. No rebound tenderness. No guarding. Negative McBurney's point. Negative psoas sign. Negative obturator sign. Skin: No petechiae or rashes Back: No midline tenderness. No CVA tenderness. Ext: No cyanosis, or edema. Neur: Awake and alert. Normal gait. Normal coordination. Psych: Normal Mood and Affect Result Diagram: 01/28/19 1227 Results 24 hrs Laboratory Tests Test 01/28/19 12:27 White Blood Count 7.0 10^3/ul Red Blood Count 4.23 10^6/ul Hemoglobin 12.0 g/dl Hematocrit 36.4 % Mean Corpuscular Volume 86.1 fl Mean Corpuscular Hemoglobin 28.4 pg Mean Corpuscular Hemoglobin Concent 33.0 g/dl Red Cell Distribution Width 13.2 % Platelet Count 316 10^3/UL Mean Platelet Volume 10.5 fl Immature Granulocytes % 0.400 % Neutrophils % 62.8 % Lymphocytes % 29.9 % Monocytes % 5.1 % Eosinophils % 1.4 % Basophils % 0.4 % Nucleated Red Blood Cells % 0.0 /100WBC Immature Granulocytes # 0.030 10^3/ul Neutrophils # 4.4 10^3/ul Lymphocytes # 2.1 10^3/ul Monocytes # 0.4 10^3/ul Eosinophils # 0.1 10^3/ul Basophils # 0.0 10^3/ul Nucleated Red Blood Cells # 0.0 10^3/ul Urine Color YELLOW Urine Clarity CLEAR Urine pH 8.0 Urine Specific [place] 1.017 Urine Ketones NEGATIVE mg/dL Urine Nitrite NEGATIVE mg/dL Urine Bilirubin NEGATIVE mg/dL Urine Urobilinogen NEGATIVE mg/dL Urine Leukocyte Esterase TRACE Deneen/ul Urine Microscopic RBC 2 /HPF Urine Microscopic WBC 2 /HPF Urine Squamous Epithelial Cells FEW /HPF Urine Hemoglobin NEGATIVE mg/dL Urine Glucose NEGATIVE mg/dL Urine Total Protein NEGATIVE mg/dl Beta HCG, Quantitative 99.0 mIU/ml Current Medications Medications Dose Sig/Jerardo Start Time Status Last (Trade) Ordered Route PRN Stop Time Admin Dose Reason Admin 650 mg ONCE STAT 01/28/19 DC 01/28/19 Acetaminophen PO 11:49 12:27 (Tylenol 01/28/19 11:51 Tab) Procedures/MDM 28-year-old female patient with no sniffing past medical history presents to ED complaining of lower abdominal pain in her . Patient is afebrile and nontoxic-appearing. An ultrasound, beta-hCG, CBC, type and RH, UA was ordered to evaluate patient. CBC: No evidence of severe infection or anemia Urine: No elevation in nitrites, trace leukocyte esterase, hematuria. Rh: O positive No indication for Rhogam at this time. beta Hc IMPRESSION: No intrauterine gestation visualized. Enlarged right ovary with a 5 cm simple cyst. Small amount of free fluid in the posterior cul-de-sac. Differential diagnosis includes early , missed or ectopic . Follow-up ultrasound and HCG levels is recommended. Patient has a 5 cm simple right ovarian cyst. Patient will also be treated for urinary tract infection. Patient currently reports that her pain has improved after receiving Tylenol 650 mg here in the ED. Patient does not have a baseline beta-hCG and was asked to follow-up with her WEALTH MANAGEMENT DIRECTOR for serial checks on her beta hCG. she does not have any vaginal bleeding. Differentials include early however ectopic cannot be ruled out at this time as there is no IUP. Low suspicion for symptomatic anemia, sepsis, PID, appendicitis, ovarian torsion, tubo-ovarian abscess, surgical abdomen, or other emergent conditions. Patient was educated that there is a risk for threatened . Discharge medications: Keflex, Tylenol Patient to follow up with WEALTH MANAGEMENT DIRECTOR in 2 days for further evaluation and treatment. Patient is to return sooner to the ED for any worsening symptoms. Patient's questions were answered. Patient understood and agreed with discharge plan. Disclaimer: Inadvertent spelling and grammatical errors are likely due to EHR/dictation software use and do not reflect on the overall quality of patient care. Also, please note that the electronic time recorded on this note does not necessarily reflect the actual time of the patient encounter. Departure Diagnosis: Primary Impression: Abdominal pain Abdominal location: unspecified location Qualified Codes: R10.9 - Unspecified abdominal pain Condition: Stable Patient Instructions: Abdominal Pain, Early Referrals: COMMUNITY CLINICS YOU HAVE RECEIVED A MEDICAL SCREENING EXAM AND THE RESULTS INDICATE THAT YOU DO NOT HAVE A CONDITION THAT REQUIRES URGENT TREATMENT IN THE EMERGENCY DEPARTMENT. FURTHER EVALUATION AND TREATMENT OF YOUR CONDITION CAN WAIT UNTIL YOU ARE SEEN IN YOUR DOCTORS OFFICE WITHIN THE NEXT 1-2 DAYS. IT IS YOUR RESPONSIBILITY TO MAKE AN APPOINTMENT FOR FOLOW-UP CARE. IF YOU HAVE A PRIMARY DOCTOR --you should call your primary doctor and schedule an appointment IF YOU DO NOT HAVE A PRIMARY DOCTOR YOU CAN CALL OUR PHYSICIAN REFERRAL HOTLINE AT IF YOU CAN NOT AFFORD TO SEE A PHYSICIAN YOU CAN CHOSE FROM THE FOLLOWING [facility] [address] [facility] [address] [facility] [address] [facility] [address] [facility]. [facility] [address] [facility] [facility] [address] [facility] [facility] YOU HAVE RECEIVED A MEDICAL SCREENING EXAM AND THE RESULTS INDICATE THAT YOU DO NOT HAVE A CONDITION THAT REQUIRES URGENT TREATMENT IN THE EMERGENCY DEPARTMENT. FURTHER EVALUATION AND TREATMENT OF YOUR CONDITION CAN WAIT UNTIL YOU ARE SEEN IN YOUR DOCTORS OFFICE WITHIN THE NEXT 1-2 DAYS. IT IS YOUR RESPONSIBILITY TO MAKE AN APPOINTMENT FOR FOLOW-UP CARE. IF YOU HAVE A PRIMARY DOCTOR --you should call your primary doctor and schedule and appointment IF YOU DO NOT HAVE A PRIMARY DOCTOR YOU CAN CALL OUR PHYSICIAN REFERRAL HOTLINE AT . IF YOU CAN NOT AFFORD TO SEE A PHYSICIAN YOU CAN CHOSE FROM THE FOLLOWING [facility]: [facility] [address] [place] [address] [facility] [address] [place] [address] [facility] [address] [place] [address] [facility] WEALTH MANAGEMENT DIRECT[place] [address] [facility] [address] [place] [address] OFFICE FAX [address] [address] [facility] [address] [place], [place] [id number] [address] BRADSHAW, [facility] [address] [facility] [address] [address], [facility] [address] [facility], [place] [address] [facility] [address] [place] [address] [address] [facility] [address] - [address] BLISS, DAVON [address], [facility] [id number] DOLL, RAGHAV [address] [facility]. [address], [facility] [id number] [address] [facility] [address] [place], [place] [phone] [facility] Hours: 8:00 am - 5:00 pm Additional Instructions: Call your primary care doctor TOMORROW for an appointment during the next 2-3 days.See the doctor sooner or return here if your condition worsens before your appointment time. ZAK LOUIS PA-C Jan 28, 2019 14:36
== END 2019-01-28 14:32 | disposition home or self-care (01) ==
LOC: FTE 11:01
DX: R10.9 Unspecified abdominal pain (principal); R10.2 Pelvic and perineal pain
CPT/HCPCS: 76801; 76817; 81001; 84702; 85025; 86900; 86901; Z7610; 36415

== ENCOUNTER 2019-02-21 23:48 | Emergency (ER) | payer OTHER ==
[~2019-02-21] VITALS: Ht 160 cm; Wt 122.7 kg
[~2019-02-21 23:48] MED LIST changes: +ACET500C5 PO; +CEPH-443 PO
[2019-02-21 23:52] VITALS: Ht 160 cm; Wt 122.7 kg
--- NOTE | 2019-02-22 02:59 | ERD ---
ER Documentation Chief Complaint Chief Complaint vaginal bleeding/abd pain x 30 minutes HPI 28-year-old female presents for vaginal bleeding times 30 minutes. She is currently 7-8 weeks . She is with 1 miscarriage. She states that she has right pelvic pain which is the same pain that she normally has the right ovarian cyst. Denies fevers. She denies nausea or vomiting. ROS All systems reviewed and are negative except as per history of present illness. Medications Home Meds Active Scripts Cephalexin* (Keflex*) 500 Mg Capsule, 500 MG PO QID for 7 Days, CAP Prov:ZAK LOUIS PA-C 01/28/19 Acetaminophen* (Tylophen*) 500 Mg Capsule, 1 CAP PO Q6H PRN for PAIN AND OR ELEVATED TEMP, #20 CAP Prov:ZAK LOUIS PA-C 01/28/19 Dicyclomine HCl (Dicyclomine HCl) 10 Mg Capsule, 10 MG PO TID PRN for ABDOMINAL CRAMPING, #20 CAP Prov:LUNA MOSELEY PA-C 12/16/18 Nitrofurantoin Monohyd Macrocr* (Macrobid*) 100 Mg Capsr, 100 MG PO BID for 5 Days, #10 CAP Prov:JOSE EDUARDO WAKEFIELD DO 06/06/18 Azithromycin* (Zithromax*) 250 Mg Tablet, 250 MG PO .RUTH DIRECTED, #6 TAB TAKE 500 MG (2 TABS) THE FIRST DAY THEN 250 MG (1 TAB) DAYS 2-5 Prov:TIMO HUTCHINSON MD 01/07/18 Ibuprofen* (Motrin*) 400 Mg Tab, 400 MG PO Q8, #15 TAB Prov:TIMO HUTCHINSON MD 01/07/18 Hydrocodone/Acetaminophen ([place] 5-325 Tablet) 1 Each Tablet, 1 TAB PO Q6H PRN for PAIN, #12 TAB Prov:TIMO HUTCHINSON MD 01/07/18 Diphenoxylate HCl/Atropine (Lomotil 2.5-0.025 mg Tablet) 1 Each Tablet, 1 TAB PO QID PRN for DIARRHEA, #10 TAB Prov:ERASMO PARTIDA DO 09/10/17 Ondansetron (Ondansetron Odt) 4 Mg Tab.rapdis, 4 MG PO Q6H PRN for NAUSEA AND/OR VOMITING, #10 TAB Prov:ERASMO PARTIDA. DO 09/10/17 Hydrocodone/Acetaminophen ([place] 10-325 Tablet) 1 Each Tablet, 1 TAB PO Q6H PRN for PAIN, #20 TAB Prov:ERASMO PARTIDA. DO 09/10/17 Ciprofloxacin Hcl* (Ciprofloxacin Hcl*) 500 Mg Tablet, 500 MG PO BID for 7 Days, TAB Prov:ERASMO PARTIDA. DO 09/10/17 Nitrofurantoin Monohyd Macrocr* (Macrobid*) 100 Mg Capsr, 100 MG PO BID for 7 Days, CAP Prov:UMER FORD SOFTWARE LICENSING ANALYST 03/15/16 Allergies Allergies: Coded Allergies: No Known Allergies (Verified Allergy, Mild, 01/07/18) PMhx/Soc Anesthesia Reaction: No Hx Neurological Disorder: No Hx Respiratory Disorders: No Hx Cardiac Disorders: No Hx Psychiatric Problems: No Hx Miscellaneous Medical Probl: No Hx Alcohol Use: Yes (OCCASIONAL) Hx Substance Use: Yes (MARIJUANA) Hx Tobacco Use: No Physical Exam Vitals Vital Signs Date Temp Pulse Resp B/P (MAP) Pulse Ox O2 O2 Flow FiO2 Time Delivery Rate 02/22/19 99.6 84 18 121/68 100 Room Air 03:19 (85) 02/21/19 98.4 87 18 120/57 100 23:52 (78) Physical Exam Const: No acute distress Resp: Clear to auscultation bilaterally Cardio: Regular rate and rhythm, no murmurs Abd: Soft, non tender, non distended. Normal bowel sounds Skin: No petechiae or rashes Back: No midline or flank tenderness Ext: No cyanosis, or edema Neur: Awake and alert Psych: Normal Mood and Affect Result Diagram: 02/22/19 0040 02/22/19 0040 Results 24 hrs Laboratory Tests Test 02/22/19 00:40 White Blood Count 10.2 10^3/ul Red Blood Count 3.92 10^6/ul Hemoglobin 11.2 g/dl Hematocrit 33.7 % Mean Corpuscular Volume 86.0 fl Mean Corpuscular Hemoglobin 28.6 pg Mean Corpuscular Hemoglobin Concent 33.2 g/dl Red Cell Distribution Width 13.2 % Platelet Count 293 10^3/UL Mean Platelet Volume 10.5 fl Immature Granulocytes % 0.600 % Neutrophils % 68.7 % Lymphocytes % 23.1 % Monocytes % 5.7 % Eosinophils % 1.6 % Basophils % 0.3 % Nucleated Red Blood Cells % 0.0 /100WBC Immature Granulocytes # 0.060 10^3/ul Neutrophils # 7.0 10^3/ul Lymphocytes # 2.4 10^3/ul Monocytes # 0.6 10^3/ul Eosinophils # 0.2 10^3/ul Basophils # 0.0 10^3/ul Nucleated Red Blood Cells # 0.0 10^3/ul Urine Color YELLOW Urine Clarity CLEAR Urine pH 5.0 Urine Specific [place] 1.023 Urine Ketones NEGATIVE mg/dL Urine Nitrite NEGATIVE mg/dL Urine Bilirubin NEGATIVE mg/dL Urine Urobilinogen NEGATIVE mg/dL Urine Leukocyte Esterase NEGATIVE Deneen/ul Urine Microscopic RBC 7 /HPF Urine Microscopic WBC 4 /HPF Urine Squamous Epithelial Cells FEW /HPF Urine Mucus FEW /HPF Urine Hemoglobin 3+ mg/dL Urine Glucose NEGATIVE mg/dL Urine Total Protein NEGATIVE mg/dl Sodium Level 136 mmol/L Potassium Level 4.1 mmol/L Chloride Level 99 mmol/L Carbon Dioxide Level 26 mmol/L Anion Gap 11 Blood Urea Nitrogen 11 mg/dl Creatinine 0.54 mg/dl Est Glomerular Filtrat Rate mL/min > 60 mL/min Glucose Level 135 mg/dl Calcium Level 9.5 mg/dl Total Bilirubin 0.1 mg/dl Direct Bilirubin 0.00 mg/dl Indirect Bilirubin 0.1 mg/dl Aspartate Amino Transf (AST/SGOT) 15 IU/L Alanine Aminotransferase (ALT/SGPT) 11 IU/L Alkaline Phosphatase 78 IU/L Total Protein 7.3 g/dl Albumin 4.0 g/dl Globulin 3.30 g/dl Albumin/Globulin Ratio 1.21 Beta HCG, Quantitative 96092.0 mIU/ml Procedures/MDM Medical Decision Making: Differential diagnosis includes but not limited to spontaneous , ovarian cyst, uterine fibroid, ectopic . Patient appeared well on physical examination. CBC showed no severe anemia, no elevated WBC to suggest systemic infection. UA did not indicate infection [place] was [address] Pelvic ultrasound showed single live intrauterine about 7 weeks. heart rate noted to be 154 There is a possibility of subchorionic bleed. Patient is advised to return to the ER in 48 hours for repeat beta-hCG level. Patient also advised to make an appointment with her PRODUCT MARKETING COORDINATOR as soon as possible. Patient advised to follow up with PCP in 1-2 days. Patient advised to return to ED for new or worsening symptoms. Patient stable on discharge from the ED. Disclaimer: Inadvertent spelling and grammatical errors are likely due to EHR/dictation software use and do not reflect on the overall quality of patient care. Also, please note that the electronic time recorded on this note does not necessarily reflect the actual time of the patient encounter. Departure Diagnosis: Primary Impression: Vaginal bleeding in patient at less than 20 weeks ges... Condition: Fair Patient Instructions: Bleeding During Early Referrals: COMMUNITY CLINICS YOU HAVE RECEIVED A MEDICAL SCREENING EXAM AND THE RESULTS INDICATE THAT YOU DO NOT HAVE A CONDITION THAT REQUIRES URGENT TREATMENT IN THE EMERGENCY DEPARTMENT. FURTHER EVALUATION AND TREATMENT OF YOUR CONDITION CAN WAIT UNTIL YOU ARE SEEN IN YOUR DOCTORS OFFICE WITHIN THE NEXT 1-2 DAYS. IT IS YOUR RESPONSIBILITY TO MAKE AN APPOINTMENT FOR FOLOW-UP CARE. IF YOU HAVE A PRIMARY DOCTOR --you should call your primary doctor and schedule an appointment IF YOU DO NOT HAVE A PRIMARY DOCTOR YOU CAN CALL OUR PHYSICIAN REFERRAL HOTLINE AT IF YOU CAN NOT AFFORD TO SEE A PHYSICIAN YOU CAN CHOSE FROM THE FOLLOWING [facility] [address] [facility]. [facility] [address] [facility] [address] [facility] [facility] [address] [facility]. [facility] [address] [facility] [facility]. [address] Additional Instructions: Call your primary care doctor TOMORROW for an appointment during the next 1-2 days.See the doctor sooner or return here if your condition worsens before your appointment time. Return to ED in 48hrs for recheck of beta HCG level. Get appointment with dry kiln loader as soon as possible. JOSE EDUARDO WAKEFIELD DO Feb 22, 2019 02:59
[2019-02-22 03:19] VITALS: BP 121/68; PULSE 84; RESP 18
== END 2019-02-22 03:21 | disposition home or self-care (01) ==
LOC: FTE 23:48
DX: O20.9 Hemorrhage in early pregnancy, unspecified (principal); R10.2 Pelvic and perineal pain; Z3A.01 Less than 8 weeks gestation of pregnancy
CPT/HCPCS: 76801; 76817; 80053; 81001; 84702; 85025; 86900; 86901; Z7502

== ENCOUNTER 2019-02-26 15:27 | Emergency (ER) | payer OTHER ==
[~2019-02-26] VITALS: Ht 165.1 cm; Wt 121.9 kg
[2019-02-26 15:30] VITALS: BP 124/78; PULSE 93; RESP 18; Ht 165.1 cm; Wt 121.9 kg
--- NOTE | 2019-02-26 16:28 | ERD ---
ER Documentation Chief Complaint Chief Complaint right lower quadrant pain,vaginal bleeding - LMp 12/21/18 HPI 28-year-old female presents for recheck on vaginal bleeding of early . She seen 4 days ago and had a quantitative hCG of 49,000. She had a visible intrauterine with positive heart tones. There is a small subchorionic hemorrhage. Patient has no significant change in condition. She has persistent mild spotting with no change in pain. She denies any fevers, vomiting, additional symptoms. She has an appointment with her OB on Sunday. Patient Rh+ on previous visit. ROS All systems reviewed and are negative except as per history of present illness. Medications Home Meds Active Scripts Cephalexin* (Keflex*) 500 Mg Capsule, 500 MG PO QID for 7 Days, CAP Prov:ZAK LOUIS PA-C 01/28/19 Acetaminophen* (Tylophen*) 500 Mg Capsule, 1 CAP PO Q6H PRN for PAIN AND OR ELEVATED TEMP, #20 CAP Prov:ZAK LOUIS PA-C 01/28/19 Dicyclomine HCl (Dicyclomine HCl) 10 Mg Capsule, 10 MG PO TID PRN for ABDOMINAL CRAMPING, #20 CAP Prov:LUNA MOSELEY PA-C 12/16/18 Nitrofurantoin Monohyd Macrocr* (Macrobid*) 100 Mg Capsr, 100 MG PO BID for 5 Days, #10 CAP Prov:JOSE EDUARDO WAKEFIELD DO 06/06/18 Azithromycin* (Zithromax*) 250 Mg Tablet, 250 MG PO .CandisPACK DIRECTED, #6 TAB TAKE 500 MG (2 TABS) THE FIRST DAY THEN 250 MG (1 TAB) DAYS 2-5 Prov:TIMO HUTCHINSON MD 01/07/18 Ibuprofen* (Motrin*) 400 Mg Tab, 400 MG PO Q8, #15 TAB Prov:TIMO HUTCHINSON MD 01/07/18 Hydrocodone/Acetaminophen ([place] 5-325 Tablet) 1 Each Tablet, 1 TAB PO Q6H PRN for PAIN, #12 TAB Prov:TIMO HUTCHINSON MD 01/07/18 Diphenoxylate HCl/Atropine (Lomotil 2.5-0.025 mg Tablet) 1 Each Tablet, 1 TAB PO QID PRN for DIARRHEA, #10 TAB Prov:ERASMO PARTIDA. DO 09/10/17 Ondansetron (Ondansetron Odt) 4 Mg Tab.rapdis, 4 MG PO Q6H PRN for NAUSEA AND/OR VOMITING, #10 TAB Prov:ERASMO PARTIDA. DO 09/10/17 Hydrocodone/Acetaminophen ([place] 10-325 Tablet) 1 Each Tablet, 1 TAB PO Q6H PRN for PAIN, #20 TAB Prov:ERASMO PARTIDA. DO 09/10/17 Ciprofloxacin Hcl* (Ciprofloxacin Hcl*) 500 Mg Tablet, 500 MG PO BID for 7 Days, TAB Prov:ERASMO PARTIDA. DO 09/10/17 Nitrofurantoin Monohyd Macrocr* (Macrobid*) 100 Mg Capsr, 100 MG PO BID for 7 Days, CAP Prov:UMER FORD TAX MANAGER PUBLIC 03/15/16 Allergies Allergies: Coded Allergies: No Known Allergies (Verified Allergy, Mild, 01/07/18) PMhx/Soc Anesthesia Reaction: No Hx Neurological Disorder: No Hx Respiratory Disorders: No Hx Cardiac Disorders: No Hx Psychiatric Problems: No Hx Miscellaneous Medical Probl: No Hx Alcohol Use: Yes (OCCASIONAL) Hx Substance Use: Yes (MARIJUANA) Hx Tobacco Use: No FmHx Family History: No diabetes, No coronary disease, No other Physical Exam Vitals Vital Signs Date Temp Pulse Resp B/P (MAP) Pulse Ox O2 O2 Flow FiO2 Time Delivery Rate 02/26/19 97.7 93 18 124/78 97 15:30 (93) Physical Exam Const: No acute distress Head: Atraumatic Eyes: Normal Conjunctiva ENT: Normal External Ears, Nose and Mouth. Neck: Full range of motion. No meningismus. Resp: Clear to auscultation bilaterally Cardio: Regular rate and rhythm, no murmurs Abd: Soft, non tender, non distended. Normal bowel sounds Skin: No petechiae or rashes Back: No midline or flank tenderness Ext: No cyanosis, or edema Neur: Awake and alert Psych: Normal Mood and Affect Procedures/MDM She presents for recheck on vaginal bleeding of early . Results from previous studies were discussed with patient. Given an intrauterine with positive heart tones was identified and there is been no changes cond ition, I do not think patient's current condition warrants repeat ultrasound of blood work. Suspicion of heterotopic would be low, there is no signs of acute abdomen, significant bleeding or significant changes in condition. She will be discharged home with recommended follow-up as scheduled with her OB in the next week. She should return sooner for tissues, clots, fevers, vomiting, worsening pain, new worsening symptoms. The patient was stable with no new complaints during the ER course. Clinically, there is no current evidence to suggest meningitis, sepsis, acute abdomen, pneumonia, stroke, acute coronary syndrome, pulmonary embolism, aortic dissection or any other emergent condition appearing to require further evaluation or hospitalization. Patient counseled regarding my diagnostic impression and care plan. Prior to discharge all questions answered. Pt agrees with treatment plan and understands strict return precautions. Pt is instructed to follow up with primary care provider within 24-48 hours. Precautionary instructions provided including instructions to return to the ER if not improving or for any worsening or changing symptoms or concerns. Departure Diagnosis: Primary Impression: Vaginal bleeding in patient at less than 20 weeks ges... Condition: Stable Patient Instructions: Bleeding During Early Referrals: NO PRIMARY,CARE PHYSICIAN (PCP) Additional Instructions: Intrauterine with heartbeat seen on previous study. Recheck for significant change in condition-clots, tissue, fevers, worsening pain or new worsening symptoms. See OB on Sunday as scheduled. NADEEM ARCHULETA MD Feb 26, 2019 16:28
== END 2019-02-26 16:48 | disposition home or self-care (01) ==
LOC: FTE 15:27
DX: O20.9 Hemorrhage in early pregnancy, unspecified (principal); Z3A.09 9 weeks gestation of pregnancy
CPT/HCPCS: 99282

== ENCOUNTER 2019-03-01 13:21 | Emergency (ER) | payer OTHER ==
[~2019-03-01] VITALS: Ht 160 cm; Wt 122.2 kg
[2019-03-01 13:22] VITALS: BP 144/65; PULSE 91; RESP 18; Ht 160 cm; Wt 122.2 kg
--- NOTE | 2019-03-01 15:38 | ERD ---
ER Documentation Chief Complaint Chief Complaint INCREASED VB [address] COLON HPI 28-year-old 10-week female who presents with complaint of vaginal bleeding. Previously presented to the ED on Sunday for vaginal spotting patient was reassured at that time given early . Return to ED the following Sunday and had an ultrasound notable for 9.1 cm uterine cysts but otherwise healthy fetus on ultrasound. Patient now concerned that she had some pink colored blood soaking a pad a ladder several hours ago. She denies heavy bleeding or passage of clots. Has been having spotting since beginning of the . She has a dull right-sided pelvic pain but reports that this pain is pretty much unchanged and has not worsened over this period of time. She has a follow-up appointment with DINING ROOM HELPER on Sunday. At time of examination patient is hemodynamically stable. ROS All systems reviewed and are negative except as per history of present illness. Medications Home Meds Active Scripts Cephalexin* (Keflex*) 500 Mg Capsule, 500 MG PO QID for 7 Days, CAP Prov:ZAK LOUIS PA-C 01/28/19 Acetaminophen* (Tylophen*) 500 Mg Capsule, 1 CAP PO Q6H PRN for PAIN AND OR ELEVATED TEMP, #20 CAP Prov:ZAK LOUIS PA-C 01/28/19 Dicyclomine HCl (Dicyclomine HCl) 10 Mg Capsule, 10 MG PO TID PRN for ABDOMINAL CRAMPING, #20 CAP Prov:LUNA MOSELEY PA-C 12/16/18 Nitrofurantoin Monohyd Macrocr* (Macrobid*) 100 Mg Capsr, 100 MG PO BID for 5 Days, #10 CAP Prov:JOSE EDUARDO WAKEFIELD DO 06/06/18 Azithromycin* (Zithromax*) 250 Mg Tablet, 250 MG PO .RUTH DIRECTED, #6 TAB TAKE 500 MG (2 TABS) THE FIRST DAY THEN 250 MG (1 TAB) DAYS 2-5 Prov:TIMO HUTCHINSON MD 01/07/18 Ibuprofen* (Motrin*) 400 Mg Tab, 400 MG PO Q8, #15 TAB Prov:TIMO HUTCHINSON MD 01/07/18 Hydrocodone/Acetaminophen ([place] 5-325 Tablet) 1 Each Tablet, 1 TAB PO Q6H PRN for PAIN, #12 TAB Prov:TIMO HUTCHINSON MD 01/07/18 Diphenoxylate HCl/Atropine (Lomotil 2.5-0.025 mg Tablet) 1 Each Tablet, 1 TAB PO QID PRN for DIARRHEA, #10 TAB Prov:ERASMO PARTIDA DO 09/10/17 Ondansetron (Ondansetron Odt) 4 Mg Tab.rapdis, 4 MG PO Q6H PRN for NAUSEA AND/OR VOMITING, #10 TAB Prov:ERASMO PARTIDA DO 09/10/17 Hydrocodone/Acetaminophen ([place] 10-325 Tablet) 1 Each Tablet, 1 TAB PO Q6H PRN for PAIN, #20 TAB Prov:ERASMO PARTIDA DO 09/10/17 Ciprofloxacin Hcl* (Ciprofloxacin Hcl*) 500 Mg Tablet, 500 MG PO BID for 7 Days, TAB Prov:ERASMO PARTIDA DO 09/10/17 Nitrofurantoin Monohyd Macrocr* (Macrobid*) 100 Mg Capsr, 100 MG PO BID for 7 Days, CAP Prov:UMER FORD NP 03/15/16 Allergies Allergies: Coded Allergies: No Known Allergies (Verified Allergy, Mild, 01/07/18) PMhx/Soc Anesthesia Reaction: No Hx Neurological Disorder: No Hx Respiratory Disorders: No Hx Cardiac Disorders: No Hx Psychiatric Problems: No Hx Miscellaneous Medical Probl: No Hx Alcohol Use: Yes (OCCASIONAL) Hx Substance Use: Yes (MARIJUANA) Hx Tobacco Use: No Smoking Status: Never smoker FmHx Family History: No diabetes, No coronary disease, No other Physical Exam Vitals Vital Signs Date Temp Pulse Resp B/P (MAP) Pulse Ox O2 O2 Flow FiO2 Time Delivery Rate 03/01/19 98.2 91 18 144/65 98 13:22 (91) Physical Exam I have reviewed the triage vital signs. Const: Well nourished, well developed, appears stated age Eyes: PERRL, no conjunctival injection HENT: NCAT, Neck supple without meningismus CV: RRR, Warm, well-perfused extremities RESP: CTAB, Unlabored respiratory effort GI: soft, non-tender, non-distended, no masses MSK: No gross deformities appreciated Skin: Warm, dry. No rashes Neuro: grossly non focal Psych: Appropriate mood and affect. Procedures/MDM This patient in the first trimester of presented to the emergency department with complaints of vaginal bleeding and abdominal pain. VSS. Has known history of ovarian cyst. This lesion on ultrasound and measured at 9.1 cm this past Sunday now current ultrasound measured it was at 9.8 cm. She denies passage of clots or heavy bleeding. Has dull right-sided pelvic pain which has not worsened since onset of . Doubt any emergent etiology to her symptoms given her reassuring exam and ultrasound findings. Ultrasound demonstrated healthy intrauterine . She has follow-up with her DINING ROOM HELPER on Sunday and advised her to keep this appointment and discuss ultrasound findings of enlarging cyst as they may be contributing to her symptoms. Clinical Impression: Vaginal bleeding in early , ovarian cyst which is enlarging Return to the ER for increased bleeding (more than 1 pad an hour for consecutive hours), increased abdominal cramping, fever, passage of products of conception, lightheadedness or any other concerns DISPOSITION PLAN: We discussed follow up with the patient's primary care doctor within 24 to 48 hours. Patient counseled regarding my diagnostic impression and care plan. Prior to discharge all questions answered. Pt agrees with treatment plan and understands strict return precautions. Precautionary instructions provided including instructions to return to the ER if not improving or for any worsening or changing symptoms or concerns. Departure Condition: Stable Patient Instructions: Vaginal Bleed in ROSENDO LEE PA-C Mar 01, 2019 15:38
== END 2019-03-01 17:11 | disposition left against medical advice (07) ==
LOC: FTE 13:21
DX: O20.9 Hemorrhage in early pregnancy, unspecified (principal); Z3A.09 9 weeks gestation of pregnancy
CPT/HCPCS: 76801; 76817

== ENCOUNTER 2019-03-07 18:13 | Emergency (ER) | payer OTHER ==
[~2019-03-07] VITALS: Wt 121.0 kg
[2019-03-07] MEDS ORDERED: ONDANSETRON 4 MG INJ IV STA (19:17)
[2019-03-07] MEDS ORDERED: SOD CHLORIDE 0.9% 1,000 ML IV STA (19:17)
[2019-03-07] MEDS ORDERED: ACETAMINOPHEN 500 MG TAB PO STA (19:17)
[2019-03-07] MEDS ORDERED: SOD CHLORIDE 0.9% 500 ML IV STA (20:42)
[2019-03-07] MEDS ORDERED: PROCHLORPERAZINE 10 MG INJ IV ONE (21:00)
[2019-03-07] MEDS ORDERED: DIPHENHYDRAMINE 50 MG INJ IV ONE (21:00)
[2019-03-07] MEDS ORDERED: NITR-58 PO (22:36)
--- NOTE | 2019-03-07 22:40 | ERD ---
ER Documentation Chief Complaint Chief Complaint VAG BLEED 11 WEEKS PREG WITH N/V HPI 28-year-old female approximately 11 weeks is here complaining of vaginal bleeding that she has had for 2 weeks. She also has nausea and vomiting and has difficulty holding food down. She is also complaining about getting headaches. She took Tylenol which did not really help. ROS All systems reviewed and are negative except as per history of present illness. Medications Home Meds Active Scripts Nitrofurantoin Monohyd Macrocr* (Macrobid*) 100 Mg Capsr, 100 MG PO BID for 7 Days, CAP Prov:SAMANTHA SHORE PA-C 03/07/19 Cephalexin* (Keflex*) 500 Mg Capsule, 500 MG PO QID for 7 Days, CAP Prov:ZAK LOUIS PA-C 01/28/19 Acetaminophen* (Tylophen*) 500 Mg Capsule, 1 CAP PO Q6H PRN for PAIN AND OR ELEVATED TEMP, #20 CAP Prov:ZAK LOUIS PA-C 01/28/19 Dicyclomine HCl (Dicyclomine HCl) 10 Mg Capsule, 10 MG PO TID PRN for ABDOMINAL CRAMPING, #20 CAP Prov:LUNA MOSELEYC 12/16/18 Nitrofurantoin Monohyd Macrocr* (Macrobid*) 100 Mg Capsr, 100 MG PO BID for 5 Days, #10 CAP Prov:JOSE EDUARDO WAKEFIELD DO 06/06/18 Azithromycin* (Zithromax*) 250 Mg Tablet, 250 MG PO .CandisPACK DIRECTED, #6 TAB TAKE 500 MG (2 TABS) THE FIRST DAY THEN 250 MG (1 TAB) DAYS 2-5 Prov:TIMO HUTCHINSON MD 01/07/18 Ibuprofen* (Motrin*) 400 Mg Tab, 400 MG PO Q8, #15 TAB Prov:TIMO HUTCHINSON MD 01/07/18 Hydrocodone/Acetaminophen ([place] 5-325 Tablet) 1 Each Tablet, 1 TAB PO Q6H PRN for PAIN, #12 TAB Prov:TIMO HUTCHINSON MD 01/07/18 Diphenoxylate HCl/Atropine (Lomotil 2.5-0.025 mg Tablet) 1 Each Tablet, 1 TAB PO QID PRN for DIARRHEA, #10 TAB Prov:ERASMO PARTIDA DO 09/10/17 Ondansetron (Ondansetron Odt) 4 Mg Tab.rapdis, 4 MG PO Q6H PRN for NAUSEA AND/OR VOMITING, #10 TAB Prov:ERASMO PARTIDA. DO 09/10/17 Hydrocodone/Acetaminophen ([place] 10-325 Tablet) 1 Each Tablet, 1 TAB PO Q6H PRN for PAIN, #20 TAB Prov:ERASMO PARTIDA. DO 09/10/17 Ciprofloxacin Hcl* (Ciprofloxacin Hcl*) 500 Mg Tablet, 500 MG PO BID for 7 Days, TAB Prov:EARSMO PARTIDA. DO 09/10/17 Nitrofurantoin Monohyd Macrocr* (Macrobid*) 100 Mg Capsr, 100 MG PO BID for 7 Days, CAP Prov:UMER FORD LEAD CARPENTER 03/15/16 Allergies Allergies: Coded Allergies: No Known Allergies (Verified Allergy, Mild, 01/07/18) PMhx/Soc Anesthesia Reaction: No Hx Neurological Disorder: No Hx Respiratory Disorders: No Hx Cardiac Disorders: No Hx Psychiatric Problems: No Hx Miscellaneous Medical Probl: No Hx Alcohol Use: Yes (OCCASIONAL) Hx Substance Use: Yes (MARIJUANA) Hx Tobacco Use: No Smoking Status: Never smoker FmHx Family History: No diabetes Physical Exam Vitals Vital Signs Date Temp Pulse Resp B/P (MAP) Pulse Ox O2 O2 Flow FiO2 Time Delivery Rate 03/07/19 98.0 102 18 133/71 99 18:16 (91) Physical Exam INITIAL VITAL SIGNS: Reviewed by me GENERAL: Awake, alert and oriented x 4, well appearing, nontoxic, speaking in full sentences. No acute distress HEAD: Atraumatic NECK: Supple. No masses. Full range of motion. No meningismus. No midline tenderness. RESPIRATORY: Clear to auscultation bilaterally. Symmetric chest wall rise. No wheezing or rales. No accessory muscle use. CV: Regular rate and rhythm. No murmurs, rubs, or gallops. ABDOMEN: Soft, non-distended. Nontender. Negative Melbeta. Negative McBurneys point tenderness. No CVA tenderness bilaterally. No guarding. No rebound. NEUROLOGIC: Normal mental status and speech. Face is symmetric. Moves all extremities equally. Motor and sensory distally intact. Normal coordination. Ambulates with a strong steady gait. Result Diagram: 03/07/191926 Results 24 hrs Laboratory Tests Test 03/07/19 19:27 03/07/19 22:33 White Blood Count 7.6 10^3/ul Red Blood Count . 10^6/ul Hemoglobin 11.9 g/dl Hematocrit 35.5 % Mean Corpuscular Volume 84.7 fl Mean Corpuscular Hemoglobin 28.4 pg Mean Corpuscular Hemoglobin Concent 33.5 g/dl Red Cell Distribution Width 12.9 % Platelet Count 278 10^3/UL Mean Platelet Volume 10.4 fl Immature Granulocytes % 0.300 % Neutrophils % 82.4 % Lymphocytes % 12.5 % Monocytes % 4.2 % Eosinophils % 0.5 % Basophils % 0.1 % Nucleated Red Blood Cells % 0.0 /100WBC Immature Granulocytes # 0.020 10^3/ul Neutrophils # 6.2 10^3/ul Lymphocytes # 1.0 10^3/ul Monocytes # 0.3 10^3/ul Eosinophils # 0.0 10^3/ul Basophils # 0.0 10^3/ul Nucleated Red Blood Cells # 0.0 10^3/ul Beta HCG, Quantitative 92168.0 mIU/ml Bedside Urine pH (LAB) 5.5 Bedside Urine Protein (LAB) Negative Bedside Urine Glucose (UA) Negative Bedside Urine Ketones (LAB) Negative Bedside Urine Blood 1+ Bedside Urine Nitrite (LAB) Negative Bedside Urine Leukocyte Esterase (L 1+ Current Medications Medications Dose Sig/Jerardo Start Time Status Last (Trade) Ordered Route PRN Stop Time Admin Dose Reason Admin Sodium 1,000 ml @ Q1H STAT 03/07/19 DC 03/07/19 Chloride 1,000 mls/hr IV 19:17 19:31 03/07/19 20:16 Ondansetron 4 mg ONCE STAT 03/07/19 DC 03/07/19 HCl (Zofran IV 19:17 19:33 Inj) 03/07/19 19:19 1,000 mg ONCE STAT 03/07/19 DC 03/07/19 Acetaminophen PO 19:17 19:33 (Tylenol 03/07/19 19:19 Tab) 10 mg ONCE ONCE 03/07/19 DC 03/07/19 Prochlorperaz IV 21:00 20:58 ine 03/07/19 21:01 (Compazine Inj) 25 mg ONCE ONCE 03/07/19 DC 03/07/19 Diphenhydrami IV 21:00 20:58 ne HCl 03/07/19 21:01 (Benadryl) Sodium 500 ml @ Q1H STAT 03/07/19 DC 03/07/19 Chloride 500 mls/hr IV 20:42 20:58 03/07/19 21:41 Procedures/MDM The differential diagnosis includes but is not limited to threatened/i ncomplete/inevitable/complete , ectopic , non- related bleeding, subdural hematoma, epidural hematoma, intracerebral hemorrhage, occult trauma, CVA, meningitis, encephalitis, hypertension, tension, migraine, cluster, cervical spine disease, and others. Anemia of 11.9. Urine is positive leukocytes. Ultrasound shows IUP Single live intrauterine with an estimated gestational age of 9 weeks 4 days, the estimated date of delivery based on this exam 10/06/2019. Prescription for Macrobid given. Patient counseled regarding my diagnostic impression and care plan. Prior to discharge all questions answered. Pt agrees with treatment plan and understands strict return precautions. Pt is instructed to follow up with primary care provider within 24-48 hours. Precautionary instructions provided including instructions to return to the ER if not improving or for any worsening or changing symptoms or concerns. Departure Diagnosis: Primary Impression: Headache Additional Impressions: Vaginal bleeding in patient at less than 20 weeks ges... Cystitis Condition: Stable Patient Instructions: Self-Care for Headaches, Bleeding During Early , Cystitis Additional Instructions: Call your primary care doctor TOMORROW for an appointment during the next 1-2 days.See the doctor sooner or return here if your condition worsens before your appointment time. SAMANTHA SHORE PA-C Mar 07, 2019 22:40
[2019-03-07 22:42] VITALS: BP 128/73; PULSE 80; RESP 18
== END 2019-03-07 22:42 | disposition home or self-care (01) ==
LOC: FTE 18:13
DX: O20.9 Hemorrhage in early pregnancy, unspecified (principal); O23.11 Infections of bladder in pregnancy, first trimester; O99.89 Other specified diseases and conditions complicating pregnancy, childbirth and the puerperium; R51 Headache; Z3A.11 11 weeks gestation of pregnancy
CPT/HCPCS: 36415; 76801; 81003; 84702; 85025; 96374; 96375; J0780; J1200; J2405; J7030; J7040; Z7502; Z7610

== ENCOUNTER 2019-03-29 20:52 | Emergency (ER) | payer OTHER ==
[~2019-03-29] VITALS: Wt 122.0 kg
[2019-03-30 02:07] VITALS: BP 145/64; PULSE 90; RESP 19
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
== END 2019-03-30 02:10 | disposition home or self-care (01) ==
LOC: FTE 20:52
DX: O26.891 Other specified pregnancy related conditions, first trimester (principal); N83.201 Unspecified ovarian cyst, right side; R10.2 Pelvic and perineal pain; O34.81 Maternal care for other abnormalities of pelvic organs, first trimester; Z3A.13 13 weeks gestation of pregnancy
CPT/HCPCS: 76801; 84702; Z7502

== ENCOUNTER 2019-05-05 22:48 | Emergency (ER) | payer OTHER ==
[~2019-05-05] VITALS: Ht 160 cm; Wt 123.1 kg
[2019-05-05 22:50] VITALS: BP 149/55; PULSE 89; RESP 22; Ht 160 cm; Wt 123.1 kg
[2019-05-06] MEDS ORDERED: ACETAMINOPHEN 325 MG TAB PO STA (03:41)
--- NOTE | 2019-05-06 03:45 | ERD ---
ER Documentation Chief Complaint Chief Complaint 19WKS PREG; SPOTTING & CRAMPING X2-3DAYS; [id number] HPI Patient is a 28 years old at 19 weeks female with no known PMHx presenting to the clinic for vaginal spotting since earlier today. Patient admits to abdominal cramps and denies using any OTC medication. Patient denied fever, chills, night sweats, vaginal discharge, dysuria, urinary frequency. ROS All systems reviewed and are negative except as per history of present illness. Medications Home Meds Active Scripts Nitrofurantoin Monohyd Macrocr* (Macrobid*) 100 Mg Capsr, 100 MG PO BID for 7 Days, CAP Prov:SAMANTHA SHORE PA-C 03/07/19 Cephalexin* (Keflex*) 500 Mg Capsule, 500 MG PO QID for 7 Days, CAP Prov:ZAK LOUIS PA-C 01/28/19 Acetaminophen* (Tylophen*) 500 Mg Capsule, 1 CAP PO Q6H PRN for PAIN AND OR ELEVATED TEMP, #20 CAP Prov:ZAK LOUIS PA-C 01/28/19 Dicyclomine HCl (Dicyclomine HCl) 10 Mg Capsule, 10 MG PO TID PRN for ABDOMINAL CRAMPING, #20 CAP Prov:LUNA MOSELEY PA-C 12/16/18 Nitrofurantoin Monohyd Macrocr* (Macrobid*) 100 Mg Capsr, 100 MG PO BID for 5 Days, #10 CAP Prov:JOSE EDUARDO [place]KE[place] DO 06/06/18 Azithromycin* (Zithromax*) 250 Mg Tablet, 250 MG PO .RUTH DIRECTED, #6 TAB TAKE 500 MG (2 TABS) THE FIRST DAY THEN 250 MG (1 TAB) DAYS 2-5 Prov:TIMO HUTCHINSON MD 01/07/18 Ibuprofen* (Motrin*) 400 Mg Tab, 400 MG PO Q8, #15 TAB Prov:TIMO HUTCHINSON MD 01/07/18 Hydrocodone/Acetaminophen ([place] 5-325 Tablet) 1 Each Tablet, 1 TAB PO Q6H PRN for PAIN, #12 TAB Prov:TIMO HUTCHINSON MD 01/07/18 Diphenoxylate HCl/Atropine (Lomotil 2.5-0.025 mg Tablet) 1 Each Tablet, 1 TAB PO QID PRN for DIARRHEA, #10 TAB Prov:ERASMO PARTIDA. DO 09/10/17 Ondansetron (Ondansetron Odt) 4 Mg Tab.rapdis, 4 MG PO Q6H PRN for NAUSEA AND/OR VOMITING, #10 TAB Prov:ERASMO PATRIDA. DO 09/10/17 Hydrocodone/Acetaminophen ([place] 10-325 Tablet) 1 Each Tablet, 1 TAB PO Q6H PRN for PAIN, #20 TAB Prov:ERASMO PARTIDA. DO 09/10/17 Ciprofloxacin Hcl* (Ciprofloxacin Hcl*) 500 Mg Tablet, 500 MG PO BID for 7 Days, TAB Prov:ERASMO PARTIDA. DO 09/10/17 Nitrofurantoin Monohyd Macrocr* (Macrobid*) 100 Mg Capsr, 100 MG PO BID for 7 Days, CAP Prov:UMER FORD OSD CLERK 03/15/16 Allergies Allergies: Coded Allergies: No Known Allergies (Verified Allergy, Mild, 01/07/18) PMhx/Soc Medical and Surgical Hx: pt denies Medical Hx, pt denies Surgical Hx History of Surgery: Yes (D&C (2011)) Anesthesia Reaction: No Hx Neurological Disorder: No Hx Respiratory Disorders: No Hx Cardiac Disorders: No Hx Psychiatric Problems: No Hx Miscellaneous Medical Probl: Yes (RIGHT OVARIAN CYST ) Hx Alcohol Use: No Hx Substance Use: No Hx Tobacco Use: No Smoking Status: Never smoker Physical Exam Vitals Vital Signs Date Temp Pulse Resp B/P (MAP) Pulse Ox O2 O2 Flow FiO2 Time Delivery Rate 05/05/19 98.3 89 22 149/55 98 22:50 (86) Physical Exam Const: No acute distress Head: Atraumatic Eyes: Normal Conjunctiva ENT: Normal External Ears, Nose and Mouth. Neck: Full range of motion. No meningismus. Resp: Clear to auscultation bilaterally Cardio: Regular rate and rhythm, no murmurs Abd: Soft, non tender, non distended. Normal bowel sounds Skin: No petechiae or rashes Back: No midline or flank tenderness Ext: No cyanosis, or edema Neur: Awake and alert Psych: Normal Mood and Affect Results 24 hrs Current Medications Medications Dose Sig/Jerardo Start Time Status Last (Trade) Ordered Route PRN Stop Time Admin Dose Reason Admin 650 mg ONCE STAT 05/06/19 DC Acetaminophen PO 03:41 (Tylenol 05/06/19 03:42 Tab) Procedures/MDM Patient was seen and evaluated for vaginal bleeding. After physical exam, nurse did not find patient in exam room. Provider alongside nurses went to look for patient without success. Patient most likely left ER without informing any staff members. No AMA could be signed. No further workup could not be done for patient. Departure Diagnosis: Primary Impression: Vaginal bleeding Condition: Fair Patient Instructions: VBPG Referrals: [facility] Additional Instructions: Patient left ED without informing any staff members before labs and imaging could be done. ROCCO POLLARD PA-C May 06, 2019 03:45
== END 2019-05-06 05:03 | disposition left against medical advice (07) ==
LOC: FTE 22:48
DX: O20.9 Hemorrhage in early pregnancy, unspecified (principal); Z3A.19 19 weeks gestation of pregnancy
CPT/HCPCS: 99282

== ENCOUNTER 2019-05-23 22:07 | Outpatient (CLI) | payer MEDICAID ==
[~2019-05-23] VITALS: Ht 160 cm; Wt 123.2 kg
[2019-05-23] MEDS ORDERED: PENI-36 PO (22:26)
[2019-05-23 22:27] VITALS: BP 123/60; PULSE 98; RESP 20; Ht 160 cm; Wt 123.2 kg
[2019-05-23] MEDS ORDERED: ACETAMINOPHEN 500 MG TAB PO ONE (22:46)
--- NOTE | 2019-05-24 01:17 | TRIAGE ---
OB Triage Datetime Report Generated by CPN: 05/24/2019 01:17 Datetime: 05/23/2019 23:52 Pain Assessment Pain Scale: 0 Pain Presence: None/Denies Pain Type: N/A Pain Assessment Comments: DENIES ANY FURTHER PAIN, TYLENOL EFFECTIVE Datetime: 05/23/2019 22:23 Assessment Type: Triage Maternal Assessment Level of Consciousness: Keenly Alert, Responsive DTR's/Clonus: DTRs 2+; No Clonus Headache: Denies Blurred Vision: No Respiratory Effort: Unlabored; Regular Rhythm; Equal Expansion Breath Sounds, Left: Clear and Equal Breath Sounds, Right: Clear and Equal Nausea/Vomiting: Denies RUQ Epigastric Pain: Denies Facial Edema: None Fall Risk Assessment History of Falling: (0) No Secondary Diagnosis: (0) No Ambulatory Aid: (0) Bedrest/Nurse Assist IV Therapy: (0) No Gait: (0) Normal/Bedrest/Immobile Mental Status: (0) Oriented to Own Ability Fall Score: 0 Fall Risk Score Definition: No Risk: No action required Datetime: 05/23/2019 22:18 Time of Arrival: 05/23/2019 21:56 EGA: 21.3 Arrived By: Wheelchair Arrived From: Home Chief Complaint: CRAMPING Movement: Present Contractions: Regular Rupture of Membranes: Denies Vaginal Bleeding: None Vaginal Discharge: Denies Recent Sexual Intercouse: Denies Abdominal Trauma: Not Applicable Patient Complaints: Cramping Time Provider Notified: 05/23/2019 22:39 Provider Notified: ARDALAN Initial Plan: U/A, FHT'S, MONITOR FOR UCS Datetime: 05/23/2019 22:15 Pain Assessment Pain Scale: 5 Pain Presence: Intermittent Pain Type: Cramping Pain Location: Abdomen Pain Goal: 5 Pain Relief Measures: Comfort Measures
--- NOTE | 2019-05-24 05:04 | PN ---
Triage Information Date/Time Late entry note for exam done for May 23, 2019 Reason for visit: Uterine contractions Weeks of Gestation 21 weeks and 3 days /Para 3 para 1 Diabetes: none Hypertention: none Additional information 28-year-old G3, P1 with IUP at 21 weeks and 3 days presented complaining of lower abdominal pain and some cramps. She denies any leaking of fluid or vaginal bleeding Reports the lower abdominal pain worsened with walking Objective Vital Signs Date Temp Pulse Resp B/P (MAP) Pulse Ox O2 O2 Flow FiO2 Time Delivery Rate 05/23/19 98.4 98 20 123/60 Room Air 22:27 (81) Heart Rate: 130's Heart Rate Comments FHTL Nl Exam GA: A&O, NAD, obese abdomen: Soft, gravid, Fundal Height consistent with date Results/Medications Results 24 hrs Laboratory Tests Test 05/23/19 22:00 Urine Color YELLOW Urine Clarity SLIGHTLY CLOUDY A Urine pH 5.0 Urine Specific [place] 1.027 Urine Ketones NEGATIVE Urine Nitrite NEGATIVE Urine Bilirubin NEGATIVE Urine Urobilinogen NEGATIVE Urine Leukocyte Esterase 2+ H Urine Microscopic RBC 12 H Urine Microscopic WBC 15 H Urine Squamous Epithelial Cells MODERATE Urine Bacteria FEW A Urine Mucus FEW A Urine Hemoglobin 2+ H Urine Glucose NEGATIVE Urine Total Protein NEGATIVE Imaging Results PROCEDURE: US OB. CLINICAL INDICATION: labor. TECHNIQUE: Multiple sonographic images of the pelvis were obtained. Transabdominal imaging only was performed. The images were reviewed on a PACS workstation. COMPARISON: 03/30/2019. FINDINGS: The cervix is closed with a length of 3.3 cm. There is minimal fluid in the endocervical canal. There is a single live intrauterine gestation. movement is visualized. Cardiac activity is present with 148 beats per minute. There is a variable presentation. Measurements were made in order to determine age. The results are as fo llows: BPD = 5.0 cm HC = 19.3 cm AC = 16.2 cm FL = 3.4 cm Estimated gestational age of approximately 21 weeks 1 day. The estimated date of delivery is 10/02/2019. The EFW = 397 g. EFW percentile: 27% The placenta is anterior, grade 0. There is no evidence for an abruption or placenta previa. There is a normal amount of amniotic fluid. The MVP measures 7.4 cm. IMPRESSION: Single live intrauterine gestation of approximately 21 weeks 1 day, based on ultrasound measurements. The estimated date of delivery is 10/02/2019. EFW percentile: 27%. Closed cervix measuring 3.3 cm. There is minimal fluid in the endocervical can al. RPTAT: HTAR Disposition: Discharge Assessment/Plan IUP at 21 weeks adn 3 days Lower abdominal pain, Round ligament pain symptoms resolved after Hydration and using belt DC home Follow up in 3 days with the office or sooner PRN Adequate Hydration discussed Patient verbalized understanding REMY HARO MD May 24, 2019 05:04
== END 2019-05-24 01:03 | disposition home or self-care (01) ==
LOC: OBT 22:07 → L-D 22:07 → OBT 05-24 01:03
PROVIDERS: ATTEND Obstetrics & Gynecology Obstetrics
DX: O62.9 Abnormality of forces of labor, unspecified (principal); O26.892 Other specified pregnancy related conditions, second trimester; R10.9 Unspecified abdominal pain; Z3A.21 21 weeks gestation of pregnancy
CPT/HCPCS: 76815; 76817; 81001; 87086; Z7500; Z7610; G0463

== ENCOUNTER 2019-06-26 17:05 | Outpatient (CLI) | payer MEDICAID ==
[~2019-06-26] VITALS: Ht 160 cm; Wt 125.3 kg
[~2019-06-26 17:05] MED LIST changes: -ACET500C5 PO; -AZIT250T PO; -CEPH-443 PO; -CIPR500T4 PO; -DICY10CA40 PO; -DIPH1TAB PO; -HYDR-3980 PO; -HYDR-4011 PO; -IBUP-1561 PO; -NITR-58 PO; -ONDA4TAB14 PO; +PENI-36 PO; +PNV11TAB PO
[2019-06-26 19:00] VITALS: Ht 160 cm; Wt 125.3 kg
--- NOTE | 2019-06-26 22:53 | PN ---
Triage Information Date/Time 06/26/1907/07/2243 Reason for visit: Abd/pelvic pain Weeks of Gestation 26w2d /Para A1 (sab) Diabetes: none Hypertention: none Additional information pain usually happens after cleaning the house according to Objective Heart Rate: 140's Heart Rate Comments short strip obtained due to difficult to monitor due to body habitus Exam CVA neg for tenderness bilaterally Results/Medications Result Diagram: 06/26/191955 Results 24 hrs Laboratory Tests Test 06/26/19 19:30 06/26/19 19:56 Urine Color YELLOW Urine Clarity CLOUDY A Urine pH 6.0 Urine Specific [place] 1.028 Urine Ketones NEGATIVE Urine Nitrite NEGATIVE Urine Bilirubin NEGATIVE Urine Urobilinogen NEGATIVE Urine Leukocyte Esterase 2+ H Urine Microscopic RBC 2 Urine Microscopic WBC 7 H Urine Squamous Epithelial Cells MODERATE Urine Bacteria FEW A Urine Mucus MANY A Urine Hemoglobin 1+ H Urine Glucose NEGATIVE Urine Total Protein 1+ H White Blood Count 6.8 Red Blood Count 3.56 L Hemoglobin 9.9 L Hematocrit 30.3 L Mean Corpuscular Volume 85.1 Mean Corpuscular Hemoglobin 27.8 L Mean Corpuscular Hemoglobin Concent 32.7 Red Cell Distribution Width 14.0 Platelet Count 275 Mean Platelet Volume 11.0 H Immature Granulocytes % 0.700 H Neutrophils % 66.9 Lymphocytes % 24.6 Monocytes % 6.8 Eosinophils % 0.9 Basophils % 0.1 Nucleated Red Blood Cells % 0.0 Immature Granulocytes # 0.050 H Neutrophils # 4.5 Lymphocytes # 1.7 Monocytes # 0.5 Eosinophils # 0.1 Basophils # 0.0 Nucleated Red Blood Cells # 0.0 Imaging Results CVL 3.3cm YEISON wasn't measured but mentioned it is adequate per report Disposition: Discharge Assessment/Plan A IUP 26w2d pelvic pain ( round ligament syndrome) UTI P discharge home with abdominal binder urine culture sent Rx cephalexin 500mg q6hr #28 JORGE MONROY MD Jun 26, 2019 22:53
== END 2019-06-26 20:58 | disposition home or self-care (01) ==
LOC: OBT 17:05 → L-D 17:07 → OBT 20:58
PROVIDERS: ATTEND Obstetrics & Gynecology
DX: O23.42 Unspecified infection of urinary tract in pregnancy, second trimester (principal); Z3A.26 26 weeks gestation of pregnancy
CPT/HCPCS: 76815; 76817; 81001; 85025; 87086; Z7500; Z7610; G0463

== ENCOUNTER 2019-07-11 14:03 | Outpatient (CLI) | payer MEDICAID ==
[~2019-07-11] VITALS: Ht 160 cm; Wt 126.3 kg
[~2019-07-11 14:03] MED LIST changes: -PENI-36 PO
[2019-07-11 14:40] VITALS: Ht 160 cm; Wt 126.3 kg
[2019-07-11 14:41] VITALS: BP 114/57; PULSE 96; RESP 18
== END 2019-07-11 17:45 | disposition home or self-care (01) ==
LOC: OBT 14:03 → L-D 14:04 → OBT 17:45
PROVIDERS: ATTEND Obstetrics & Gynecology
DX: O26.893 Other specified pregnancy related conditions, third trimester (principal); Z3A.28 28 weeks gestation of pregnancy; R20.0 Anesthesia of skin
CPT/HCPCS: 76817; 81001; 87086; Z7500; G0463

== ENCOUNTER 2019-08-05 17:06 | Outpatient (CLI) | payer MEDICAID, OTHER ==
[~2019-08-05] VITALS: Ht 160 cm; Wt 127.8 kg
[~2019-08-05 17:06] MED LIST changes: +FERR256T PO; +HYDR28.39 RC; +POLY17PO6 PO
[2019-08-05 17:21] VITALS: Ht 160 cm; Wt 127.8 kg
== END 2019-08-05 20:55 | disposition home or self-care (01) ==
LOC: EDBD → OBT 17:06 → EDBD 17:06 → L-D 17:06 → OBT 20:55
PROVIDERS: ATTEND Obstetrics & Gynecology
DX: O40.3XX0 Polyhydramnios, third trimester, not applicable or unspecified (principal); O99.213 Obesity complicating pregnancy, third trimester; E66.01 Morbid (severe) obesity due to excess calories; Z3A.32 32 weeks gestation of pregnancy
CPT/HCPCS: 76775; 76815; 76817; 76818; 81001; 85025; G0463

== ENCOUNTER 2019-08-07 13:14 | Outpatient (CLI) | payer MEDICAID, OTHER ==
[~2019-08-07] VITALS: Ht 160 cm; Wt 127.3 kg
[2019-08-07 13:48] VITALS: Ht 160 cm; Wt 127.3 kg
== END 2019-08-07 15:55 | disposition home or self-care (01) ==
LOC: OBT 13:14 → L-D 13:16 → OBT 15:55
PROVIDERS: ATTEND Obstetrics & Gynecology
DX: O40.3XX0 Polyhydramnios, third trimester, not applicable or unspecified (principal); Z3A.32 32 weeks gestation of pregnancy
CPT/HCPCS: 76818; 84112; G0463

== ENCOUNTER 2019-08-26 13:16 | Outpatient (CLI) | payer OTHER ==
[~2019-08-26] VITALS: Ht 160 cm; Wt 128.9 kg
[~2019-08-26 13:16] MED LIST changes: -HYDR28.39 RC; -POLY17PO6 PO
[2019-08-26 14:03] VITALS: BP 130/63; RESP 18; Ht 160 cm; Wt 128.9 kg
== END 2019-08-26 15:40 | disposition home or self-care (01) ==
LOC: OBT 13:16 → L-D 13:16 → OBT 15:40
PROVIDERS: ATTEND Obstetrics & Gynecology
DX: O36.8120 Decreased fetal movements, second trimester, not applicable or unspecified (principal); Z3A.23 23 weeks gestation of pregnancy
CPT/HCPCS: 76818; Z7500; G0463

== ENCOUNTER 2019-09-09 14:56 | Outpatient (CLI) | payer OTHER ==
[~2019-09-09] VITALS: Ht 160 cm; Wt 130.7 kg
[2019-09-09 15:13] VITALS: BP 116/66; PULSE 104; RESP 18
== END 2019-09-09 20:05 | disposition home or self-care (01) ==
LOC: OBT 14:56 → L-D 14:56 → OBT 20:05
PROVIDERS: ATTEND Obstetrics & Gynecology
DX: O62.9 Abnormality of forces of labor, unspecified (principal); Z3A.37 37 weeks gestation of pregnancy
CPT/HCPCS: 76818; 93970; Z7500; G0463

== ENCOUNTER 2019-09-21 09:04 | Inpatient (IN) | payer OTHER ==
[~2019-09-21] VITALS: Ht 160 cm; Wt 131.2 kg
[2019-09-21 09:11] VITALS: Ht 160 cm; Wt 131.2 kg
[2019-09-21] MEDS ORDERED: LACTATED RINGER'S 1,000 ML IV SCH ×3 (11:00→19:15)
[2019-09-21] MEDS ORDERED: OXYTOCIN 30 UNITS/LR 500 ML IV PRN ×2 (12:30→19:30)
[2019-09-21] MEDS ORDERED: MISOPROSTOL 200 MCG TAB PR PRN ×2 (12:30→19:30)
[2019-09-21] MEDS ORDERED: CARBOPROST 250 MCG INJ IM PRN ×2 (12:30→19:30)
[2019-09-21] MEDS ORDERED: METHYLERGONOVINE 0.2 MG INJ IM PRN ×2 (12:30→19:30)
[2019-09-21] MEDS ORDERED: CEFAZOLIN 2 GM/50 ML (PMX) 50 ML IVPB SCH (12:30)
[2019-09-21] MEDS ORDERED: AZITHROMYCIN 500MG/NS (PMX) 250 ML IVPB ONE (15:30)
[2019-09-21] MEDS ORDERED: ONDANSETRON 4 MG INJ IV ONE (16:30)
[2019-09-21] MEDS ORDERED: CITRIC ACID/NA CITRATE 30 ML CUP PO ONE (16:30)
[2019-09-21] MEDS ORDERED: PHENYLephrine (100 MCG/ML) 10ML SYG ONE (17:42)
[2019-09-21] MEDS ORDERED: morphine SULFATE/PF (10 MG/10 ML) INJ ONE (17:43)
[2019-09-21] MEDS ORDERED: DEXAMETHASONE 4 MG/ML 1 ML INJ ONE (17:43)
[2019-09-21] MEDS ORDERED: OXYTOCIN 30 UNITS/LR 500 ML IV SCH (19:15)
[2019-09-21] MEDS ORDERED: IBUPROFEN 600 MG TAB PO PRN (19:30)
[2019-09-21] MEDS ORDERED: ACETAMINOPHEN 325 MG TAB PO PRN (19:30)
[2019-09-21] MEDS ORDERED: LANOLIN HPA 1 PKT TOP PRN (19:30)
[2019-09-21] MEDS ORDERED: CEFAZOLIN 1 GM/50 ML (PMX) 50 ML IVPB SCH (19:30)
[2019-09-21] MEDS ORDERED: ONDANSETRON 4 MG INJ IV PRN ×2 (19:30→20:30)
[2019-09-21] MEDS ORDERED: OXYCODONE/ACETAMINOPHEN (5/325) TAB PO PRN ×2 (19:30)
[2019-09-21] MEDS ORDERED: BISACODYL 10 MG SUPP PR PRN (19:30)
[2019-09-21] MEDS: KETOROLAC 30 MG INJ IV PRN (20:24)
[2019-09-21] MEDS ORDERED: ZOLPIDEM 5 MG TAB PO PRN (20:30)
[2019-09-21] MEDS ORDERED: NALOXONE (0.4 MG/ML) INJ IV PRN (20:30)
[2019-09-21] MEDS ORDERED: DIPHENHYDRAMINE 50 MG INJ IV PRN (20:30)
[2019-09-21] MEDS ORDERED: HYDROmorphONE 0.5 MG/0.5 ML SYG IV PRN ×2 (20:30)
[2019-09-21] MEDS: OXYTOCIN 30 UNITS/LR 500 ML IV SCH (20:36)
[2019-09-21 21:20] VITALS: BP 121/58; PULSE 78; RESP 18
[2019-09-22] VITALS: BP 110/58; PULSE 85; RESP 18
[2019-09-22] MEDS: CEFAZOLIN 1 GM/50 ML (PMX) 50 ML IVPB SCH ×3 (02:01→17:28)
[2019-09-22 04:00] VITALS: BP 119/62; PULSE 89; RESP 17
[2019-09-22] MEDS: KETOROLAC 30 MG INJ IV PRN ×3 (05:52→17:28)
[2019-09-22 08:25] VITALS: BP 113/52; PULSE 80; RESP 18
[2019-09-22] MEDS: SENNA/DOCUSATE NA (8.6MG/50MG) TAB PO PRN (09:03)
[2019-09-22] MEDS: MAGNESIUM HYDROXIDE 30ML CUP PO PRN (11:28)
[2019-09-22 12:26] VITALS: BP 104/51; PULSE 65; RESP 14
[2019-09-22 16:00] VITALS: BP 132/70; PULSE 88; RESP 17
[2019-09-22] MEDS ORDERED: OXYCODONE/ACETAMINOPHEN (5/325) TAB PO PRN (17:35)
[2019-09-22] MEDS ORDERED: ONDANSETRON 4 MG INJ IV PRN (17:35)
[2019-09-22 21:00] VITALS: BP 107/53; PULSE 102; RESP 18
[2019-09-22] MEDS: IBUPROFEN 600 MG TAB PO PRN (23:37)
[2019-09-23 04:00] VITALS: BP 101/53; PULSE 88; RESP 17
[2019-09-23] MEDS: OXYCODONE/ACETAMINOPHEN (5/325) TAB PO PRN ×3 (04:33→19:37)
[2019-09-23 08:00] VITALS: BP 102/52; PULSE 90; RESP 18
[2019-09-23] MEDS: MAGNESIUM HYDROXIDE 30ML CUP PO PRN ×2 (09:18→20:42)
[2019-09-23] MEDS: IBUPROFEN 600 MG TAB PO PRN ×2 (09:18→17:46)
[2019-09-23] MEDS ORDERED: WITCH HAZEL/GLYCERIN PAD PR PRN (09:30)
[2019-09-23 12:03] VITALS: BP 107/58; PULSE 99; RESP 20
[2019-09-23] MEDS: OXYTOCIN 30 UNITS/LR 500 ML IV SCH (12:31)
[2019-09-23 15:48] VITALS: BP 99/57; PULSE 103; RESP 16
[2019-09-23 16:00] VITALS: BP 120/66; PULSE 96; RESP 24
[2019-09-23 19:20] VITALS: BP 107/53; PULSE 99; RESP 18
[2019-09-23] MEDS: SENNA/DOCUSATE NA (8.6MG/50MG) TAB PO PRN (20:42)
[2019-09-24 04:12] VITALS: BP 113/56; PULSE 82; RESP 18
[2019-09-24] MEDS: IBUPROFEN 600 MG TAB PO PRN ×2 (04:22→10:25)
[2019-09-24 08:00] VITALS: BP 115/59; PULSE 87; RESP 12
[2019-09-25] MEDS ORDERED: FLU VACC QS 2019-20 (6MOS UP) 0.5 ML SYG IM* ONE (09:00)
== END 2019-09-24 14:00 | disposition home or self-care (01) | DRG 787 ==
LOC: L-D 09:04 → OBT 09:04 → L-D 11:55 → PP1 21:18
PROVIDERS: ADMIT Obstetrics & Gynecology; ATTEND Obstetrics & Gynecology
PROC: 10D00Z1 Extraction of Products of Conception, Low, Open Approach (ICD-10-PCS; principal; 2019-09-21)
DX: O32.2XX0 Maternal care for transverse and oblique lie, not applicable or unspecified (principal); O41.03X0 Oligohydramnios, third trimester, not applicable or unspecified; Z3A.38 38 weeks gestation of pregnancy; Z37.0 Single live birth
CPT/HCPCS: 76815; 76818; 80053; 81001; 84560; 85025; 85610; 85730; 86592; 86703; 86803; 86850; 86900; 86901; 87340; 90686; 99464; G0463; J0456; J0690; J1100; J1170; J1885; J2274; J2370; J2405; J2590; J7120

== ENCOUNTER 2019-09-26 18:33 | Emergency (ER) | payer OTHER ==
[~2019-09-26] VITALS: Ht 160 cm; Wt 127.3 kg
[~2019-09-26 18:33] MED LIST changes: -FERR256T PO
[2019-09-26 18:35] VITALS: Ht 160 cm; Wt 127.3 kg
[2019-09-26 20:15] VITALS: BP 124/75; PULSE 78; RESP 16
== END 2019-09-26 20:15 | disposition home or self-care (01) ==
LOC: E/R 18:33
DX: O72.1 Other immediate postpartum hemorrhage (principal)
CPT/HCPCS: 80048; 85025; Z7502; 99283